=== PATIENT | female | born 1985 | race Two or more races ===

== ENCOUNTER 2023-08-18 08:39 | Day surgery (SDC) | payer MEDICAID ==
[~2023-08-18 08:39] MED LIST: ACET-1304 PO; AMLO1TAB22 PO; CHOL1CAP21 PO; HYDR50TA47 PO; METF-370 PO
[2023-08-18] MEDS ORDERED: MIDAZOLAM HCL 2MG/2ML 2ml VIAL (1mg/ml) ONE (09:49)
[2023-08-18] MEDS ORDERED: fentaNYL CITRATE 100 MCG/2 ML VL ONE (09:49)
[2023-08-18] MEDS ORDERED: LIDOCAINE 2%HCL (LOCAL ANESTH.) INJ 20ML MDV ONE (10:00)
[2023-08-18] MEDS ORDERED: IODIXANOL 320MG/ML 100ML BTL IV ONE (10:01)
[2023-08-18] MEDS ORDERED: cefTRIAXone 1GM/50ML D5W 50 ML IV ONE (10:09)
[2023-08-18] MEDS ORDERED: hydrALAZINE HCL 20 MG/ML VL ONE (10:32)
[2023-08-18 13:25] VITALS: BP 160/85; PULSE 88; RESP 16
[2023-08-18] MEDS: HYDROmorphone HCL 2 MG/ML VL/or syr IV ONE (13:25)
[2023-08-18 13:46] LABS: Basophils # (auto) 0 10 ^3/uL (0-0.2); Basophils % (auto) 0.6 % (0.0-2.0); Eosinophils # (auto) 0 10 ^3/uL (0-0.8); Hematocrit 36.3 % (36.0-46.0); Lymphocytes # (auto) 2.1 10 ^3/uL (0.4-5.4); Monocytes # (auto) 0.4 10 ^3/uL (0-1.3)
[2023-08-18 13:48] LABS: Eosinophils % (auto) 0.8 % (0.0-7.0); Hemoglobin 11.4 g/dL (12.2-16.2); Lymphocytes % (auto) 34.7 % (10.0-50.0); Mean Corpuscular Hemoglobin 24.8 pg (28.0-32.0); Mean Corpuscular Hgb Conc. 31.4 g/dL (32.0-36.0); Mean Corpuscular Volume 78.9 fL (80.0-100.0); Monocytes % (auto) 6.1 % (0.0-12.0); Neutrophils # (auto) 3.5 10 ^3/uL (1.6-8.6); Neutrophils % (auto) 57.8 % (37.0-80.0); Red Cell Distribution Width 16.8 % (11.8-14.3)
[2023-08-18] MEDS: ONDANSETRON HCL 4 MG/2 ML VIAL ONE (15:19)
== END 2023-08-18 15:30 | disposition home or self-care (01) ==
LOC: CATH 08:39
PROVIDERS: ATTEND Urology
DX: N13.2 Hydronephrosis with renal and ureteral calculous obstruction (principal); Z87.891 Personal history of nicotine dependence; Z79.899 Other long term (current) drug therapy; Z98.890 Other specified postprocedural states
CPT/HCPCS: 36415; 50432; 85025; C1758; C1769; C1894; J0360; J0696; J1170; J1644; J2250; J2405; J3010; Q9967; 76942; 99152; 99153

== ENCOUNTER 2023-08-22 06:27 | Inpatient (IN) | payer MEDICAID ==
[~2023-08-22] VITALS: Ht 177.8 cm; Wt 148.7 kg
[~2023-08-22 06:27] MED LIST changes: -ACET-1304 PO
[2023-08-22] MEDS: IOHEXOL 300 MG/ML 100ML BOTTLE IJ ONE ×2 (07:13→08:56)
[2023-08-22] MEDS: CIPROFLOXACIN 400MG/200ML 200 ML IV ONE (07:15)
[2023-08-22] MEDS ORDERED: fentaNYL CITRATE 5 ML ONE (07:32)
[2023-08-22] MEDS ORDERED: MIDAZOLAM HCL 2MG/2ML 2ml VIAL (1mg/ml) ONE (07:32)
[2023-08-22] MEDS ORDERED: PROPOFOL 10 MG/ML 20 ML IV ONE (08:42)
[2023-08-22] MEDS ORDERED: ROCURONIUM 10MG/ML 10ML VIAL IV ONE (08:42)
[2023-08-22] MEDS ORDERED: ONDANSETRON HCL 4 MG/2 ML VIAL ONE (08:43)
[2023-08-22] MEDS ORDERED: LIDOCAINE 2% (LOCAL ANESTH.) PF 5ml SDV ONE (08:43)
[2023-08-22] MEDS ORDERED: HYDROmorphone HCL 2 MG/ML VL/or syr IV PRN (09:00)
[2023-08-22 09:17] VITALS: O2SAT 96
[2023-08-22] MEDS ORDERED: NITROGLYCERIN 0.4 MG SL TAB SL PRN (09:30)
[2023-08-22] MEDS: HYDROmorphone HCL 2 MG/ML VL/or syr IV PRN ×2 (09:33→17:34)
[2023-08-22] MEDS ORDERED: NEOSTIGMINE 1 MG/ML INJ (10mg/10ML VIAL) ONE (09:55)
[2023-08-22] MEDS ORDERED: GLYCOPYRROLATE 0.2 MG/ML 1ML VIAL ONE (09:55)
[2023-08-22] MEDS: ONDANSETRON HCL 4 MG/2 ML VIAL IV ONE (09:56)
[2023-08-22] MEDS: MORPHINE SULFATE INJ 2 MG/ml SYRG IV PRN (10:50)
[2023-08-22] MEDS: SUCCINYLCHOLINE CHLORIDE 20 MG/ML 10ML VIAL IV ONE (11:27)
[2023-08-22 12:08] VITALS: BP 156/86; PULSE 100; RESP 20; TEMP 98.1; O2SAT 95
[2023-08-22 12:21] VITALS: BP 156/86; PULSE 100; RESP 20; TEMP 98.1
[2023-08-22 13:08] VITALS: BP 156/86; PULSE 103; RESP 20; TEMP 98.1; O2SAT 95
[2023-08-22] MEDS: MORPHINE SULFATE INJ 2 MG/ml SYRG IV ONE (13:20)
[2023-08-22] MEDS ORDERED: ONDANSETRON HCL 4 MG/2 ML VIAL IV PRN (13:30)
[2023-08-22] MEDS ORDERED: HYDROcodone-ACET 7.5/325MG TAB PO PRN (13:30)
[2023-08-22] MEDS ORDERED: ACETAMINOPHEN 325 MG TAB PO PRN (13:30)
[2023-08-22] MEDS ORDERED: DEXTROSE (50%) 50ML SYRG IV PRN (13:30)
[2023-08-22] MEDS ORDERED: HYDROmorphone HCL 2 MG/ML VL/or syr IV ONE (13:30)
[2023-08-22] MEDS: HYDROmorphone HCL 2 MG/ML VL/or syr IV ONE (13:53)
[2023-08-22 14:59] LABS: Basophils # (auto) 0 10 ^3/uL (0-0.2); Eosinophils # (auto) 0 10 ^3/uL (0-0.8); Lymphocytes # (auto) 1.4 10 ^3/uL (0.4-5.4); Monocytes # (auto) 0.5 10 ^3/uL (0-1.3); Neutrophils # (auto) 6.1 10 ^3/uL (1.6-8.6)
[2023-08-22 15:01] LABS: Basophils % (auto) 0.4 % (0.0-2.0); Eosinophils % (auto) 0.3 % (0.0-7.0); Hematocrit 36.7 % (36.0-46.0); Hemoglobin 11.4 g/dL (12.2-16.2); Mean Corpuscular Hemoglobin 25.6 pg (28.0-32.0); Mean Corpuscular Hgb Conc. 31.1 g/dL (32.0-36.0); Mean Corpuscular Volume 82.6 fL (80.0-100.0); Monocytes % (auto) 6.5 % (0.0-12.0); Neutrophils % (auto) 75.8 % (37.0-80.0); Red Blood Cells 4.45 10^6/uL (4.0-5.20); Red Cell Distribution Width 17.4 % (11.8-14.3)
[2023-08-22 15:15] LABS: INR 0.96 (0.9-1.15); Partial Thromboplastin Time 26.7 SEC (24.5-34.5); Prothrombin Time 10.2 sec (9.3-11.8)
[2023-08-22 15:23] LABS: Alanine Aminotransferase 20 U/L (7-40); Albumin 4.2 g/dL (3.2-4.8); Alkaline Phosphatase 80 U/L (46-116); Anion Gap 3 (5-15); Aspartate Aminotransferase 14 U/L (13-40); BUN/Creatinine Ratio 8.7 (10.0-20.0); Bilirubin, Total 0.3 mg/dL (0.2-1.0); Blood Urea Nitrogen 6 mg/dL (9-23); Calcium 8.8 mg/dL (8.5-10.1); Carbon Dioxide 27 mmol/L (20-30); Chloride 107 mmol/L (98-107); Glucose 148 mg/dL (74-106); Potassium 4.2 mmol/L (3.5-5.1); Sodium 137 mmol/L (136-145)
[2023-08-22] MEDS: SODIUM CHLORIDE 0.9% 1,000 ML IV SCH (16:00)
[2023-08-22 16:21] LABS: Urine Bacteria None Seen /hpf (None Seen)
[2023-08-22 16:59] LABS: Urine Blood 3+ /uL (Negative); Urine Budding Yeast OCCASIONAL /hpf (None Seen); Urine Clarity Turbid (Clear); Urine Color Colorless (Yellow); Urine Mucus FEW (None Seen); Urine Protein, UAD 1+ (Negative); Urine Specific Gravity 1.015 (1.001-1.035); Urine Urobilinogen Normal (Negative); Urine WBC 300 /hpf (0 - 5); Urine pH 6.5 (5.0-9.0)
[2023-08-22 17:00] VITALS: BP 163/79; PULSE 73; RESP 20; TEMP 98.5; O2SAT 98
[2023-08-22] MEDS: ACCU-CHEK COMFORT CURVE STRIP VI SCH (17:34)
[2023-08-22] MEDS: InsuLIN REG 1unit/0.01ml Soln (100units/ml) SC SCH (17:35)
[2023-08-22] MEDS: HYDROcodone-ACET 5/325MG TAB PO PRN (20:35)
[2023-08-22 21:00] VITALS: BP 203/80; PULSE 106; RESP 17; TEMP 98.1; O2SAT 95
[2023-08-22] MEDS: levoFLOXacin 500MG 100 ML IV SCH (21:40)
[2023-08-22] MEDS: hydrALAZINE HCL 20 MG/ML VL IV PRN (21:40)
[2023-08-23] VITALS (7 sets, daily range): BP systolic 114–165; BP diastolic 67–76; PULSE 83–113; RESP 16–20; TEMP 97.3–98.9; O2SAT 90–100
[2023-08-23 05:38] LABS: Basophils # (auto) 0 10 ^3/uL (0-0.2); Basophils % (auto) 0.3 % (0.0-2.0); Eosinophils # (auto) 0 10 ^3/uL (0-0.8); Eosinophils % (auto) 0.4 % (0.0-7.0); Hematocrit 33.5 % (36.0-46.0); Lymphocytes # (auto) 0.9 10 ^3/uL (0.4-5.4); Lymphocytes % (auto) 8.6 % (10.0-50.0); Mean Corpuscular Hgb Conc. 31.5 g/dL (32.0-36.0); Monocytes # (auto) 0.6 10 ^3/uL (0-1.3); Red Blood Cells 4.09 10^6/uL (4.0-5.20)
[2023-08-23 05:40] LABS: Hemoglobin 10.6 g/dL (12.2-16.2); Mean Corpuscular Hemoglobin 25.9 pg (28.0-32.0); Mean Corpuscular Volume 82.1 fL (80.0-100.0); Neutrophils # (auto) 8.5 10 ^3/uL (1.6-8.6); Neutrophils % (auto) 84.7 % (37.0-80.0); Red Cell Distribution Width 17.3 % (11.8-14.3); White Blood Cell 10.1 10^3/uL (4.4-10.8)
[2023-08-23 05:47] LABS: Anion Gap 6 (5-15); Carbon Dioxide 24 mmol/L (20-30); Chloride 104 mmol/L (98-107); Potassium 4.1 mmol/L (3.5-5.1); Sodium 134 mmol/L (136-145)
[2023-08-23 05:48] LABS: Calcium 8.6 mg/dL (8.7-10.4)
[2023-08-23 05:53] LABS: BUN/Creatinine Ratio 9.7 (10.0-20.0); Blood Urea Nitrogen 6 mg/dL (9-23); Glucose 159 mg/dL (74-106)
[2023-08-23] MEDS: amLODIPine BESYLATE 5 MG TAB PO SCH (09:39)
[2023-08-23] MEDS: KETOROLAC TROMETH 30 MG/ML 1ML VIAL IV SCH (11:50)
[2023-08-23] MEDS: HYDROmorphone HCL 2 MG/ML VL/or syr IV PRN (13:55)
[2023-08-24 01:00] VITALS: BP 156/86; PULSE 97; RESP 20; TEMP 99.8; O2SAT 93
[2023-08-24 05:00] VITALS: BP 153/91; PULSE 96; RESP 18; TEMP 98.8; O2SAT 97
[2023-08-24 07:36] LABS: Anion Gap 7 (5-15); Basophils # (auto) 0 10 ^3/uL (0-0.2); Carbon Dioxide 26 mmol/L (20-30); Chloride 105 mmol/L (98-107); Eosinophils # (auto) 0.1 10 ^3/uL (0-0.8); Eosinophils % (auto) 0.8 % (0.0-7.0); Hematocrit 31.6 % (36.0-46.0); Hemoglobin 9.9 g/dL (12.2-16.2); Lymphocytes # (auto) 1.3 10 ^3/uL (0.4-5.4); Mean Corpuscular Hgb Conc. 31.5 g/dL (32.0-36.0); Potassium 3.2 mmol/L (3.5-5.1); Red Blood Cells 3.88 10^6/uL (4.0-5.20); Sodium 138 mmol/L (136-145)
[2023-08-24 07:37] LABS: Calcium 8.6 mg/dL (8.7-10.4)
[2023-08-24 07:40] LABS: Basophils % (auto) 0.5 % (0.0-2.0); Lymphocytes % (auto) 17.1 % (10.0-50.0); Mean Corpuscular Hemoglobin 25.7 pg (28.0-32.0); Mean Corpuscular Volume 81.6 fL (80.0-100.0); Monocytes # (auto) 0.6 10 ^3/uL (0-1.3); Monocytes % (auto) 7.8 % (0.0-12.0); Neutrophils # (auto) 5.4 10 ^3/uL (1.6-8.6); Neutrophils % (auto) 73.8 % (37.0-80.0); White Blood Cell 7.3 10^3/uL (4.4-10.8)
[2023-08-24 07:42] LABS: Blood Urea Nitrogen 6 mg/dL (9-23); Glucose 140 mg/dL (74-106)
[2023-08-24 09:00] VITALS: BP 155/82; PULSE 95; RESP 14; TEMP 97.5; O2SAT 95
[2023-08-24] MEDS: POTASSIUM CHL 20 Meq TABLET PO ONE (11:32)
[2023-08-24 13:00] VITALS: BP 157/82; PULSE 88; RESP 14; TEMP 97.4; O2SAT 96
[2023-08-24 17:00] VITALS: BP 137/84; PULSE 102; RESP 16; TEMP 97.5; O2SAT 100
[2023-08-24 21:00] VITALS: BP 136/71; PULSE 88; RESP 18; TEMP 98.7; O2SAT 95
[2023-08-25 01:00] VITALS: BP 154/87; PULSE 94; RESP 19; TEMP 98.4; O2SAT 98
[2023-08-25 05:00] VITALS: BP 144/77; PULSE 74; RESP 18; TEMP 97.7; O2SAT 98
[2023-08-25 06:43] LABS: Basophils # (auto) 0 10 ^3/uL (0-0.2); Eosinophils # (auto) 0.1 10 ^3/uL (0-0.8); Eosinophils % (auto) 2.2 % (0.0-7.0); Hemoglobin 10.2 g/dL (12.2-16.2); Mean Corpuscular Hemoglobin 25.1 pg (28.0-32.0); Mean Corpuscular Hgb Conc. 31.7 g/dL (32.0-36.0)
[2023-08-25 06:46] LABS: Basophils % (auto) 0.7 % (0.0-2.0); Chloride 107 mmol/L (98-107); Hematocrit 32.1 % (36.0-46.0); Lymphocytes # (auto) 1.9 10 ^3/uL (0.4-5.4); Lymphocytes % (auto) 29.4 % (10.0-50.0); Mean Corpuscular Volume 79.1 fL (80.0-100.0); Monocytes # (auto) 0.5 10 ^3/uL (0-1.3); Monocytes % (auto) 7.3 % (0.0-12.0); Neutrophils # (auto) 3.9 10 ^3/uL (1.6-8.6); Neutrophils % (auto) 60.4 % (37.0-80.0); Nucleated Red Blood Cells % 0.1 %; Potassium 3.6 mmol/L (3.5-5.1); Red Blood Cells 4.06 10^6/uL (4.0-5.20); Red Cell Distribution Width 16.9 % (11.8-14.3); Sodium 139 mmol/L (136-145); White Blood Cell 6.5 10^3/uL (4.4-10.8)
[2023-08-25 06:47] LABS: Anion Gap 7 (5-15); Carbon Dioxide 25 mmol/L (20-30)
[2023-08-25 06:52] LABS: BUN/Creatinine Ratio 9.8 (10.0-20.0); Blood Urea Nitrogen 6 mg/dL (9-23); Glucose 150 mg/dL (74-106)
[2023-08-25 09:00] VITALS: BP 145/80; PULSE 75; RESP 19; TEMP 97.9; O2SAT 97
[2023-08-25] MEDS ORDERED: LEVO500T91 PO (11:55)
[2023-08-25 12:40] VITALS: BP 154/89; PULSE 74; RESP 20; TEMP 98.5; O2SAT 98
[2023-08-25 14:54] VITALS: BP 154/89; PULSE 74; RESP 20; TEMP 98.5; O2SAT 98
== END 2023-08-25 16:00 | disposition home or self-care (01) | DRG 465 ==
LOC: SUR 06:27 → OVERFLOW 09:24 → WEST WING 11:35
PROVIDERS: ADMIT Urology; ATTEND Internal Medicine
PROC: BT111ZZ Fluoroscopy of Right Kidney using Low Osmolar Contrast (ICD-10-PCS; 2023-08-22)
PROC: 0TJ54ZZ Inspection of Kidney, Percutaneous Endoscopic Approach (ICD-10-PCS; 2023-08-22)
PROC: 0T9030Z Drainage of Right Kidney with Drainage Device, Percutaneous Approach (ICD-10-PCS; principal; 2023-08-22 07:31)
DX: N20.0 Calculus of kidney (principal); E11.9 Type 2 diabetes mellitus without complications; Z68.42 Body mass index [BMI] 45.0-49.9, adult; E66.01 Morbid (severe) obesity due to excess calories; I10 Essential (primary) hypertension; N39.0 Urinary tract infection, site not specified; Z87.442 Personal history of urinary calculi; Z93.6 Other artificial openings of urinary tract status
CPT/HCPCS: 36415; 74018; 74425; 76000; 76775; 80048; 80053; 81001; 81025; 82962; 83036; 85025; 85610; 85730; 87081; G0378; J0330; J1815; J1885; J1956; J2001; J2250; J2405; J2704

== ENCOUNTER 2024-02-14 18:55 | Inpatient (IN) | payer MEDICAID ==
[~2024-02-14] VITALS: Ht 172.7 cm; Wt 143.2 kg
[~2024-02-14 18:55] MED LIST changes: +LEVO500T91 PO
--- NOTE | 2024-02-14 20:08 | ED.PDOC ---
General HPI Comments HPI: Poor Historian. 38-year-old female status post lithotripsy and stent placement earlier today by Dr. Troy the urologist. Patient was prescribed hydrocodone. Patient is here for right flank pain with nausea and not responding to hydrocodone. She contacted her urologist who advised her to come to the ER. Vitals: respiratory rate of 16, SpO2 of 94%RA, pulse rate of 77, and a blood pressure of 138/90 PMHx: nephrolithiasis, HTN, DM, depression PSHx: right laser lithotripsy, tonsillectomy, REVIEW OF SYSTEMS: CONSTITUTIONAL: Denies acute: fever, diaphoresis, chills, generalized weakness. HEAD: Denies acute: headache, photophobia Eyes: Denies acute: Double vision, vision loss, eye pain, eye discharge. EARS: Denies acute: tinnitus, hearing loss, ear discharge, ear pain, THROAT: Denies acute: sore throat, swelling, difficulty swallowing , pain with swallowing, change in voice. NECK: Denies acute: neck pain, neck swelling, stiff neck. HEART: Denies acute : chest pain, palpitations, LUNGS: Denies acute: SOB, wheezing, cough, hemoptysis ABDOMEN: Denies acute: Vomiting, diarrhea, melena , hematemesis, hematochezia SKIN: Denies acute: rash, redness, lesions, itchiness. EXTREMITIES: Denies acute: calf pain, numbness, tingling, weakness, denies pain in extremity. Denies acute: Low back pain. Neuro: Denies acute: focal neurological deficit, motor or sensory focal neurological deficit, tremors, seizure like activity, confusion, dizziness, change in mental status, loss of bowel or bladder function, cauda equina like symptoms. : Denies acute: dysuria, hematuria, increase in urinary frequency. PSYCH: Denies acute: hallucination, suicidal ideation, homicidal ideation. FEMALE: Denies acute: abnormal vaginal bleeding, foul odor, unusual discharge. PHYSICAL EXAM: General: no acute distress, awake and alert. Head: normocephalic, atraumatic. Neck: supple, trachea is midline, no swelling. Throat: Normal phonation. Eyes:, no erythema, no purulent discharge, no proptosis, no icterus. Heart: regular rate, regular rhythm, no significant murmur appreciated. Lungs: no apparent respiratory distress, Able to speak in full sentences. No wheezing, no rhonchi, no crackles. No stridors Clear to auscultation bilaterally. Abdomen: non tender to palpation, non distended, soft, no guarding, no rebound, + bowel sounds. Morbidly obese Neuro: Awake, Alert, oriented to name, self, situation, follows commands GCS=15. Speech is normal. Skin: no petechia, no purpura, no cyanosis, non-pale, not jaundice. Lower extremities: --no - Pitting edema no deformity, no focal swelling, no calf TTP. Makes eye contact. moves all four extremities. Face: no apparent facial droop. Right CVA tenderness to percussion Ambulating in the ED independently. Chief Complaint: Flank Pain Time Seen by MD: 20:00 Reviewed notes: Nurses Notes, Medications, Allergies Allergies: Coded Allergies: No Known Drug Allergy (Verified Allergy, Unknown, 02/14/24) Uncoded Allergies: NONE (Allergy, Unknown, 08/17/23) Home Meds Active Scripts Levofloxacin Hemihydrate (LEVAQUIN 500 MG) 500 Mg Tab, 500 MG PO DAILY for 7 Days, #7 TAB Prov:GARO RESTREPO MD 08/25/23 Reported Medications Cholecalciferol (Vitamin D3) 50,000 Unit Cap, 027[address] UNIT PO QWEEKLY for TUESDAYS, CAP 08/17/23 Hydralazine Hcl (Hydralazine Hcl) 50 Mg Tab, 50 MG PO Q4HP PRN for SYS B/P >150, MG 08/17/23 Amlodipine Besylate (Amlodipine Besylate) 5 Mg Tab, 5 MG PO BID for HTN, MG 08/17/23 Metformin Hydrochloride (Metformin Hcl) 500 Mg Tab, 1000 MG PO DAILY for DIABETES for 30 Days, MG 08/17/23 Information Source: Patient Mode of Arrival: Ambulatory Was a procedure done? Was a procedure done?: No Differential Diagnosis Kidney stone (Female): AAA, Aortic dissection, , Appendicitis, Bowel obstruction, Cholelithiasis, DJD, Ectopic , Hepatitis, HNP, Musculoskeletal pain, Ovarian torsion, Pancreatitis, Pyelonephritis, Renal failure, Strain, Urinary obstruction, Urolithiasis Other Differential Diagnosis Flank Pain; DDX include Nephrolethiasis, obstructive uropathy, kidney cancer, renal infarct, intraabdominal neoplasm, lower lobe pneumonia, retroperitoneal hemorrhage, pancreatitis, aneurysm, dissection, musculoskeletal, rib contusion/trauma, hem atoma, PYLONEPHRITIS, muscle strain, spinal disease. IN A FEMALE X-Ray, Labs, Meds, VS Vital Signs Date Time Temp Pulse Resp B/P (MAP) Pulse Ox O2 Delivery O2 Flow Rate FiO2 02/14/24 19:19 98.2 77 16 138/90 (106) 94 Lab Test 02/14/24 21:04 02/14/24 20:15 Range/Units Urine Color Colorless Yellow Urine Clarity Turbid H Clear Urine pH 5.5 5.0-9.0 Urine Specific [place] 1.032 1.001-1.035 Urine Protein 1+ H Negative Urine Ketones 1+ H Negative Urine Blood 3+ H Negative /uL Urine Nitrite Negative Negative Urine Bilirubin Negative Negative Urine Urobilinogen Normal Negative mg/dL Urine Leukocyte Esterase Negative Negative /uL Urine RBC 496 0 - 4 /hpf Urine WBC 20 0 - 5 /hpf Urine Squamous Epithelial Cells Few <5 /hpf Urine Bacteria Few H None Seen /hpf Urine Mucus Few None Seen Urine Glucose 4+ H Normal mg/dL Urine Opiates Screen Pos NEGATIVE Urine Fentanyl Screen Pos NEGATIVE Urine Barbiturates Screen Neg NEGATIVE Urine Phencyclidine Screen Neg NEGATIVE Urine Amphetamines Screen Neg NEGATIVE Urine Benzodiazepines Screen Pos NEGATIVE Urine Cocaine Screen Neg NEGATIVE Urine Cannabinoids Screen Neg NEGATIVE White Blood Count 11.0 H 4.4-10.8 10^3/uL Red Blood Count 4.63 4.0-5.20 10^6/uL Hemoglobin 12.0 L 12.2-16.2 g/dL Hematocrit 37.7 36.0-46.0 % Mean Corpuscular Volume 81.5 80.0-100.0 fL Mean Corpuscular Hemoglobin 26.0 L 28.0-32.0 pg Mean Corpuscular Hemoglobin Concent 31.9 L 32.0-36.0 g/dL Red Cell Distribution Width 17.3 H 11.8-14.3 % Platelet Count 286 140-450 10^3/uL Mean Platelet Volume 7.9 6.9-10.8 fL Neutrophils (%) (Auto) 87.6 H 37.0-80.0 % Lymphocytes (%) (Auto) 9.1 L 10.0-50.0 % Monocytes (%) (Auto) 3.1 0.0-12.0 % Eosinophils (%) (Auto) 0.0 0.0-7.0 % Basophils (%) (Auto) 0.2 0.0-2.0 % Neutrophils # (Auto) 9.6 H 1.6-8.6 10 ^3/uL Lymphocytes # (Auto) 1.0 0.4-5.4 10 ^3/uL Monocytes # (Auto) 0.3 0-1.3 10 ^3/uL Eosinophils # (Auto) 0 0-0.8 10 ^3/uL Basophils # (Auto) 0 0-0.2 10 ^3/uL Nucleated Red Blood Cells 0.0 % Sodium Level 137 136-145 mmol/L Potassium Level 4.4 3.5-5.1 mmol/L Chloride Level 104 98-107 mmol/L Carbon Dioxide Level 22 20-31 mmol/L Anion Gap 11 5-15 Blood Urea Nitrogen 14 9-23 mg/dL Creatinine 1.09 H 0.550-1.02 mg/dL Glomerular Filtration Rate Calc 66 >90 mL/min BUN/Creatinine Ratio 12.8 10.0-20.0 Serum Glucose 241 H 74-106 mg/dL Calcium Level 9.3 8.7-10.4 mg/dL Total Bilirubin 0.4 0.2-1.0 mg/dL Aspartate Amino Transferase (AST) 16 13-40 U/L Alanine Aminotransferase (ALT) 30 7-40 U/L Alkaline Phosphatase 96 46-116 U/L Troponin I High Sensitivity < 3 L </=34 ng/L Total Protein 7.4 5.7-8.2 g/dL Albumin 4.5 3.2-4.8 g/dL Beta HCG, Quantitative 0.1 L 1.5-4.2 mIU/mL [facility] [id number] [place] [id number] Ph: [phone] DIAGNOSTIC IMAGING Diagnostic Imaging Report : [id number] Signed PATIENT: ABEL PLEITEZ ACCT: [id number] UNIT: [id number] : 1985 LOC: ER ROOM / BED: / AGE / SEX: 38 / F ADM STATUS: REG ER SERVICE 38 ORDERING PHYSICIAN: CALLIE VIERA DO PROCEDURE(s): ABPL - CT AB PEL WO CON-NO ORAL OR IV REASON: flank pain post lithotripsy ORDER NUMBER(s): [id number], ACCESSION NUMBER(s): [id number] Exam: CT CT AB PEL WO CON-NO ORAL OR IV History: flank pain post lithotripsy Comparison Study: None Technique: Multidetector spiral CT of the abdomen and pelvis was performed from lung bases to pubic symphysis. Imaging was performed without IV contrast. Axial, coronal and sagittal multiplanar reformats were obtained from the axial data set by the technologist. Radiation dose : Abdomen/Pelvis: CTDIvol 27 mGy, DLP 1514 mGy*cm. Findings: Evaluation of solid organs is limited due to lack of intravenous contrast use. Lung Bases: No acute or significant lung base finding. Normal heart size. No pleural or pericardial effusion. Liver: The liver is normal in size. No focal lesions. Gallbladder and biliary Tree: Unremarkable Spleen: Unremarkable Pancreas: The pancreas is grossly normal in appearance. Adrenal Glands: Unremarkable Kidneys: Right kidney appears swollen. There is hyperdense material in the renal calices, renal pelvis, and ureter which likely represents blood or contrast. There is moderate right hydronephrosis. Some air is seen in the collecting system consistent with recent intervention. There are a few right renal calculi, largest measuring up to 8 mm. No definite right ureteral calculus. Few left lower pole renal calculi noted. No left hydronephrosis. Bladder: Grossly unremarkable for degree of distention. Bowel: The stomach is grossly normal in appearance. Small bowel and colon are normal in caliber and distribution. The appendix is not visualized; however, no secondary findings of acute appendicitis identified. Ascites: Absent Lymphadenopathy: No mesenteric, retroperitoneal or periportal lymphadenopathy. Abdominal wall and Mesentery: Unremarkable. Vasculature: The visualized abdominal aorta is normal in size and caliber. Evaluation of abdominal and pelvic vessels is limited due to lack of intravenous contrast. Pelvic Organs: Unremarkable Musculoskeletal: No aggressive focal bony lesions, acute fractures or dislocation. IMPRESSION: 1. Evidence of recent right kidney intervention. Right kidney appears swollen. Moderate right hydronephrosis. Hyperdense fluid in the right renal collecting system and right ureter likely represents blood or contrast. Residual right renal calculi, largest in the lower pole measures up to 8 mm. Few left renal calculi. Radiation optimization: All CT scans at this facility use at least one of these dose optimization techniques: Automated exposure control mA and/or kV adjustment per patient size (includes targeted exams where dose is matched to clinical indication) or iterative reconstruction. HS:Y ATED BY: FERMIN FREITAS MD DICTATED DATE/TIME: 02/14/242031 SIGNED BY: FERMIN FREITAS MD SIGNED DATE/TIME: 02/14/242031 CC: Time of 1ST Reevaluation: 20:00 Reevaluation 1ST: Unchanged Time of 2ND Reevaluation: 22:54 Reevaluation 2ND: Improved Patient Education/Counseling: Diagnosis, Treatment Family Education/Counseling: No Family Present Comments We tried multiple times to reach the urology who sent the the patient to the ED for further evaluation Dr. Troy. We left multiple messages. I also is techs him on his personal phone. We have not heard back from him yet. Patient is in severe pain. Patient will be admitted for pain control. Patient presented with the above HPI.----flank pain--workup was initiated. p atient was found with the above mentioned diagnosis. Patient was given: Fentanyl and fluids and Rocephin Patient ED course and VS have been stabilized. Patient has been reassessed in the ED and remained in a stable condition. Pertinent incidental findings were discussed with the patient and/or family. Patient/family voices understanding and is agreeable with plan. Patient has been observed in the ED adequate length of time to insure improvement/stability. patient was admitted to the medicine team for further evaluation and treatment of their presentation. All the reports of any imaging studies that were ordered by myself were reviewed by myself. Departure 1 Departure Time of Disposition: 20:09 Impression: Primary Impression: Postoperative pain Additional Impressions: UTI (urinary tract infection) Hydronephrosis, right Disposition: ADMITTED INPATIENT Admit to: Tele Condition: Guarded Discharged With: Self Critical Care Note Critical Care Time?: No I personally scribed for CALLIE VIERA DO ([email or web address]) on 02/14/24 at 20:08. Electronically submitted by Ar Ly ([email or web address]). I personally scribed for CALLIE VIERA DO ([email or web address]) on 11/13/24 at 21:37. Electronically submitted by Ar Ly [email or web address]). CALLIE VIERA DO Feb 14, 2024 20:08
[2024-02-14 20:33] LABS: Basophils # (auto) 0 10 ^3/uL (0-0.2); Basophils % (auto) 0.2 % (0.0-2.0); Eosinophils # (auto) 0 10 ^3/uL (0-0.8); Hematocrit 37.7 % (36.0-46.0); Lymphocytes % (auto) 9.1 % (10.0-50.0); Mean Corpuscular Hgb Conc. 31.9 g/dL (32.0-36.0); Mean Corpuscular Volume 81.5 fL (80.0-100.0); Monocytes # (auto) 0.3 10 ^3/uL (0-1.3); Monocytes % (auto) 3.1 % (0.0-12.0); Neutrophils # (auto) 9.6 10 ^3/uL (1.6-8.6); Neutrophils % (auto) 87.6 % (37.0-80.0); Platelet Count (auto) 286 10^3/uL (140-450); Red Blood Cells 4.63 10^6/uL (4.0-5.20); Red Cell Distribution Width 17.3 % (11.8-14.3)
--- NOTE | 2024-02-14 20:35 | DVH ---
Exam: CT CT AB PEL WO CON-NO ORAL OR IV History: flank pain post lithotripsy Comparison Study: None Technique: Multidetector spiral CT of the abdomen and pelvis was performed from lung bases to pubic symphysis. Imaging was performed without IV contrast. Axial, coronal and sagittal multiplanar reform ats were obtained from the axial data set by the technologist. Radiation dose : Abdomen/Pelvis: CTDIvol 27 mGy, DLP 1514 mGy*cm. Findings: Evaluation of solid organs is limited due to lack of intravenous contrast use. Lung Bases: No acute or significant lung base finding. Normal heart size. No pleural or pericardial effusion. Liver: The liver is normal in size. No focal lesions. Gallbladder and biliary Tree: Unremarkable Spleen: Unremarkable Pancreas: The pancreas is grossly normal in appearance. Adrenal Glands: Unremarkable Kidneys: Right kidney appears swollen. There is hyperdense material in the renal calices, renal pelv is, and ureter which likely represents blood or contrast. There is moderate right hydronephrosis. Newton e air is seen in the collecting system consistent with recent intervention. There are a few right shannon al calculi, largest measuring up to 8 mm. No definite right ureteral calculus. Few left lower pole re nal calculi noted. No left hydronephrosis. Bladder: Grossly unremarkable for degree of distention. Bowel: The stomach is grossly normal in appearance. Small bowel and colon are normal in caliber and d istribution. The appendix is not visualized; however, no secondary findings of acute appendicitis id entified. Ascites: Absent Lymphadenopathy: No mesenteric, retroperitoneal or periportal lymphadenopathy. Abdominal wall and Mesentery: Unremarkable. Vasculature: The visualized abdominal aorta is normal in size and caliber. Evaluation of abdominal a nd pelvic vessels is limited due to lack of intravenous contrast. Pelvic Organs: Unremarkable Musculoskeletal: No aggressive focal bony lesions, acute fractures or dislocation. IMPRESSION: 1. Evidence of recent right kidney intervention. Right kidney appears swollen. Moderate right hydrone phrosis. Hyperdense fluid in the right renal collecting system and right ureter likely represents bl ood or contrast. Residual right renal calculi, largest in the lower pole measures up to 8 mm. Few lef t renal calculi. Radiation optimization: All CT scans at this facility use at least one of these dose optimization diaz hniques: Automated exposure control mA and/or kV adjustment per patient size (includes targeted exams where dose is matched to clinical indication) or iterative reconstruction. HS:Y
[2024-02-14 20:51] LABS: Alanine Aminotransferase 30 U/L (7-40); Albumin 4.5 g/dL (3.2-4.8); Alkaline Phosphatase 96 U/L (46-116); Anion Gap 11 (5-15); Aspartate Aminotransferase 16 U/L (13-40); BUN/Creatinine Ratio 12.8 (10.0-20.0); Bilirubin, Total 0.4 mg/dL (0.2-1.0); Blood Urea Nitrogen 14 mg/dL (9-23); Calcium 9.3 mg/dL (8.7-10.4); Carbon Dioxide 22 mmol/L (20-31); Chloride 104 mmol/L (98-107); Glucose 241 mg/dL (74-106); Potassium 4.4 mmol/L (3.5-5.1); Sodium 137 mmol/L (136-145); Total Protein 7.4 g/dL (5.7-8.2)
[2024-02-14 21:27] LABS: Amphetamine Screen, Urine Neg (NEGATIVE); Barbiturate Scree,Urine Neg (NEGATIVE); Benzodiazephine Screen, Urine Pos (NEGATIVE); Cannabinoid Screen, Urine Neg (NEGATIVE); Cocaine Screen, Urine Neg (NEGATIVE); Opiate Scree,Urine Pos (NEGATIVE); Phencyclidine Screen, Urine Neg (NEGATIVE)
[2024-02-14 21:33] LABS: Urine Bacteria FEW /hpf (None Seen); Urine Blood 3+ /uL (Negative); Urine Clarity Turbid (Clear); Urine Color Colorless (Yellow); Urine Mucus FEW (None Seen); Urine Protein, UAD 1+ (Negative); Urine Specific Gravity 1.032 (1.001-1.035); Urine Urobilinogen Normal (Negative); Urine WBC 20 /hpf (0 - 5); Urine pH 5.5 (5.0-9.0)
[2024-02-15 01:17] VITALS: PULSE 82; RESP 17; O2SAT 98
[2024-02-15] MEDS: SODIUM CHLORIDE 0.9% 1,000 ML IV ONE (01:48)
[2024-02-15] MEDS: ONDANSETRON HCL 4 MG/2 ML VIAL IV ONE (02:05)
[2024-02-15] MEDS: cefTRIAXone 1GM/50ML D5W 50 ML IV ONE (02:05)
[2024-02-15] MEDS: fentaNYL CITRATE 100 MCG/2 ML VL IV ONE (02:13)
[2024-02-15] MEDS ORDERED: ONDANSETRON HCL 4 MG/2 ML VIAL IV PRN ×2 (04:00→15:15)
[2024-02-15] MEDS ORDERED: ACETAMINOPHEN 325 MG TAB PO PRN (04:00)
[2024-02-15] MEDS ORDERED: DEXTROSE (50%) 50ML SYRG IV PRN (04:00)
[2024-02-15] MEDS: ACCU-CHEK COMFORT CURVE STRIP VI SCH (06:08)
[2024-02-15] MEDS: InsuLIN REG 1unit/0.01ml Soln (100units/ml) SC SCH (06:11)
[2024-02-15] MEDS: HYDROcodone-ACET 5/325MG TAB PO PRN (06:31)
--- NOTE | 2024-02-15 06:55 | DVHHP2 ---
History of Present Illness Reason for Visit: Flank pain History of Present Illness 38-year-old female presents for evaluation of right-sided flank pain. Patient reports undergoing lithotripsy with stent placement yesterday by Dr. Troy. She reports worsening right flank pain postprocedure and noted some blood in her urine. Denies fever or chills. No other acute complaints reported. Past Medical History Diabetes mellitus, hypertension, nephrolithiasis and depression. Past Surgical History Tonsillectomy and lithotripsy with stent placement Family History Noncontributory Smoke: No ALCOHOL: none Drugs: None Lives: with Family Review of Systems Review of Systems Review of systems are currently negative otherwise addressed in HPI. Allergies: Coded Allergies: No Known Drug Allergy (Verified Allergy, Unknown, 02/14/24) Uncoded Allergies: NONE (Allergy, Unknown, 08/17/23) Medications Current Medications Medications Dose Ordered Sig/Lilliam Route Start Time Stop Time Status Last Admin Dose Admin Losartan Potassium 100 mg DAILY PO 02/15/24 10:00 Ceftriaxone Sodium 50 ml @ 100 mls/hr DAILY@0200 IV 02/16/24 02:00 Diagnostic Test (Pha) 1 strip Q6HR 02/15/24 06:00 02/15/24 06:08 1 STRIP Insulin Human Regular Q6HR SC 02/15/24 06:00 02/15/24 06:11 2 UNITS Dextrose 50 ml UD PRN IV 02/15/24 04:00 Acetaminophen/ Hydrocodone Bitart 1 tab Q4HP PRN PO 02/15/24 04:00 02/15/24 06:31 1 TAB Ondansetron HCl 4 mg Q4HP PRN IV 02/15/24 04:00 Acetaminophen 650 mg Q6HP PRN PO 02/15/24 04:00 Morphine Sulfate 2 mg Q4HPRN PRN IV 02/15/24 04:00 Exam Vital Signs Vital Signs Date Time Temp Pulse Resp B/P (MAP) Pulse Ox O2 Delivery O2 Flow Rate FiO2 02/15/24 06:32 98.2 78 18 143/75 (97) 97 98.2 02/15/24 01:17 Room Air* 0 21 Exam Gen: 38-year-old female in mild distress, morbidly obese Skin: Warm, dry, normal color and texture, no rash. HEENT: Normocephalic atraumatic, mucous membranes moist and pink. Neck: Cervical and supraclavicular nodes normal without enlargement, trachea is midline, thyroid gland is normal without masses. Pulmonary: Clear to auscultation and percussion bilaterally. Cardiac: Regular rate and rhythm. No murmur Abdomen: Soft, right flank tenderness, nondistended, bowel sounds present all 4 quadrants, no guarding, no rigidity, no organomegaly. Extremities: No cyanosis, clubbing, no edema Neuro: Cranial nerves II through XII grossly intact, normal affect and speech, no focal motor deficits. Labs/Xrays ORDERING PHYSICIAN: CALLIE VIERA DO PROCEDURE(s): ABPL - CT AB PEL WO CON-NO ORAL OR IV REASON: flank pain post lithotripsy ORDER NUMBER(s): [id number], ACCESSION NUMBER(s): [id number] Exam: CT CT AB PEL WO CON-NO ORAL OR IV History: flank pain post lithotripsy Comparison Study: None Technique: Multidetector spiral CT of the abdomen and pelvis was performed fro m lung bases to pubic symphysis. Imaging was performed without IV contrast. Axial, coronal and sagittal multiplanar reformats were obtained from the axial data set by the technologist. Radiation dose : Abdomen/Pelvis: CTDIvol 27 mGy, DLP 1514 mGy*cm. Findings: Evaluation of solid organs is limited due to lack of intravenous contrast use. Lung Bases: No acute or significant lung base finding. Normal heart size. No pleural or pericardial effusion. Liver: The liver is normal in size. No focal lesions. Gallbladder and biliary Tree: Unremarkable Spleen: Unremarkable Pancreas: The pancreas is grossly normal in appearance. Adrenal Glands: Unremarkable Kidneys: Right kidney appears swollen. There is hyperdense material in the renal calices, renal pelvis, and ureter which likely represents blood or contrast. There is moderate right hydronephrosis. Some air is seen in the collecting system consistent with recent intervention. There are a few right renal calculi, largest measuring up to 8 mm. No definite right ureteral calculus. Few left lower pole renal calculi noted. No left hydronephrosis. Bladder: Grossly unremarkable for degree of distention. Bowel: The stomach is grossly normal in appearance. Small bowel and colon are normal in caliber and distribution. The appendix is not visualized; however, no secondary findings of acute appendicitis identified. Ascites: Absent Lymphadenopathy: No mesenteric, retroperitoneal or periportal lymphadenopathy. Abdominal wall and Mesentery: Unremarkable. Vasculature: The visualized abdominal aorta is normal in size and caliber. Evaluation of abdominal and pelvic vessels is limited due to lack of intravenous contrast. Pelvic Organs: Unremarkable Musculoskeletal: No aggressive focal bony lesions, acute fractures or dislocation. IMPRESSION: 1. Evidence of recent right kidney intervention. Right kidney appears swollen. Moderate right hydronephrosis. Hyperdense fluid in the right renal collecting system and right ureter likely represents blood or contrast. Residual right renal calculi, largest in the lower pole measures up to 8 mm. Few left renal calculi. Radiation optimization: All CT scans at this facility use at least one of these dose optimization techniques: Automated exposure control mA and/or kV adjustment per patient size (includes targeted exams where dose is matched to clinical indication) or iterative reconstruction. HS:Y Labs Test 02/14/24 21:04 02/14/24 20:15 Range/Units Urine Color Colorless Yellow Urine Clarity Turbid H Clear Urine pH 5.5 5.0-9.0 Urine Specific [place] 1.032 1.001-1.035 Urine Protein 1+ H Negative Urine Ketones 1+ H Negative Urine Blood 3+ H Negative /uL Urine Nitrite Negative Negative Urine Bilirubin Negative Negative Urine Urobilinogen Normal Negative mg/dL Urine Leukocyte Esterase Negative Negative /uL Urine RBC 496 0 - 4 /hpf Urine WBC 20 0 - 5 /hpf Urine Squamous Epithelial Cells Few <5 /hpf Urine Bacteria Few H None Seen /hpf Urine Mucus Few None Seen Urine Glucose 4+ H Normal mg/dL Urine Opiates Screen Pos NEGATIVE Urine Fentanyl Screen Pos NEGATIVE Urine Barbiturates Screen Neg NEGATIVE Urine Phencyclidine Screen Neg NEGATIVE Urine Amphetamines Screen Neg NEGATIVE Urine Benzodiazepines Screen Pos NEGATIVE Urine Cocaine Screen Neg NEGATIVE Urine Cannabinoids Screen Neg NEGATIVE White Blood Count 11.0 H 4.4-10.8 10^3/uL Red Blood Count 4.63 4.0-5.20 10^6/uL Hemoglobin 12.0 L 12.2-16.2 g/dL Hematocrit 37.7 36.0-46.0 % Mean Corpuscular Volume 81.5 80.0-100.0 fL Mean Corpuscular Hemoglobin 26.0 L 28.0-32.0 pg Mean Corpuscular Hemoglobin Concent 31.9 L 32.0-36.0 g/dL Red Cell Distribution Width 17.3 H 11.8-14.3 % Platelet Count 286 140-450 10^3/uL Mean Platelet Volume 7.9 6.9-10.8 fL Neutrophils (%) (Auto) 87.6 H 37.0-80.0 % Lymphocytes (%) (Auto) 9.1 L 10.0-50.0 % Monocytes (%) (Auto) 3.1 0.0-12.0 % Eosinophils (%) (Auto) 0.0 0.0-7.0 % Basophils (%) (Auto) 0.2 0.0-2.0 % Neutrophils # (Auto) 9.6 H 1.6-8.6 10 ^3/uL Lymphocytes # (Auto) 1.0 0.4-5.4 10 ^3/uL Monocytes # (Auto) 0.3 0-1.3 10 ^3/uL Eosinophils # (Auto) 0 0-0.8 10 ^3/uL Basophils # (Auto) 0 0-0.2 10 ^3/uL Nucleated Red Blood Cells 0.0 % Sodium Level 137 136-145 mmol/L Potassium Level 4.4 3.5-5.1 mmol/L Chloride Level 104 98-107 mmol/L Carbon Dioxide Level 22 20-31 mmol/L Anion Gap 11 5-15 Blood Urea Nitrogen 14 9-23 mg/dL Creatinine 1.09 H 0.550-1.02 mg/dL Glomerular Filtration Rate Calc 66 >90 mL/min BUN/Creatinine Ratio 12.8 10.0-20.0 Serum Glucose 241 H 74-106 mg/dL Calcium Level 9.3 8.7-10.4 mg/dL Total Bilirubin 0.4 0.2-1.0 mg/dL Aspartate Amino Transferase (AST) 16 13-40 U/L Alanine Aminotransferase (ALT) 30 7-40 U/L Alkaline Phosphatase 96 46-116 U/L Troponin I High Sensitivity < 3 L </=34 ng/L Total Protein 7.4 5.7-8.2 g/dL Albumin 4.5 3.2-4.8 g/dL Beta HCG, Quantitative 0.1 L 1.5-4.2 mIU/mL Assessment/Plan Assessment/Plan Assessment Complicated UTI Postoperative pain Right hydronephrosis Diabetes mellitus Leukocytosis Morbid obesity Plan Admit the patient to [facility] surge to the hospitalist Urology consultation Rocephin Pain management Continue treatment per orders. Plan discussed with: Patient My Orders Orders - GARO MOODY Procedure Category Date Status Time Losartan Tablet PHA 02/15/24 In Process (Cozaar Tablet) 10:00 Consistent DIET 02/15/24 Transmitted Carb(Ccho)Diabetes Breakfast Basic Metabolic Panel LAB 02/16/24 Verified 04:00 Glucose Blood PHA 02/15/24 In Process (Accu-Chek Comfort 06:00 Insulin R (Human) PHA 02/15/24 In Process (Insulin R) 06:00 Dextrose 50% Syringe PHA 02/15/24 In Process 04:00 Admit ADMIT 02/15/24 Transmitted 03:50 Hydrocodone-Acet PHA 02/15/24 In Process 5/325mg Tab (Hagan 04:00 Ondansetron Hcl PHA 02/15/24 In Process (Zofran) 04:00 Complete Blood Count LAB 02/16/24 Verified 04:00 Cardiac DIET 02/15/24 Transmitted Diet-2gna,Lofat,Lochol Breakfast Condition: Stable JOSSELIN 02/15/24 In Process 03:50 Acetaminophen Tablet PHA 02/15/24 In Process (Tylenol Tablet) 04:00 Bedrest With Bathroom JOSSELIN 02/15/24 In Process Privileg 03:50 Morphine Sulfate PHA 02/15/24 In Process Injection 04:00 * Urology Consult CONS 02/15/24 Transmitted 03:55 Ceftriaxone 1gm/50ml PHA 02/16/24 In Process D5w (Rocephin) 02:00 Hemoglobin & LAB 02/15/24 Transmitted Hematocrit 06:51 Type And Screen BBK 02/15/24 Transmitted 06:51 Date of Service: Feb 15, 2024 Billing Provider: GARO MOODY Common Visit Codes: [id number] INP/OBS CARE (MOD) GARO MOODY Feb 15, 2024 06:55
[2024-02-15 07:35] LABS: Hematocrit 36.1 % (36.0-46.0); Hemoglobin 11.3 g/dL (12.2-16.2)
--- NOTE | 2024-02-15 07:44 | DVHINCON2 ---
Date of service: Feb 15, 2024 Referring Physician ER Reason for Consultation Nausea and vomiting and right flank pain History of Present Illness Patient underwent multiple urological procedures for her right lower pole calculus. She had undergone an attempted PCNL without success, 2 ureteroscopic laser lithotripsies, 2 extracorporeal shockwave lithotripsies and another attempt at ureteroscopic laser lithotripsy yesterday at [facility]. Stone could not be identified. Patient was discharged home but returned to the emergency room in severe right flank pain and nausea vomiting. Moderate hydronephrosis was noted on the CT scan. Patient is admitted for pain control and I am planning to take her back to the OR for stent placement and possible CVAC laser lithotripsy Past Medical History Multiple kidney stones Past Surgical History Multiple kidney stone procedures Family History: Diabetes mellitus G8 MOTHER G8 FATHER Hypertension G8 MOTHER G8 FATHER Allergies: Coded Allergies: No Known Drug Allergy (Verified Allergy, Unknown, 02/14/24) Uncoded Allergies: NONE (Allergy, Unknown, 08/17/23) Home Meds Active Scripts Levofloxacin Hemihydrate (LEVAQUIN 500 MG) 500 Mg Tab, 500 MG PO DAILY for 7 Days, #7 TAB Prov:GARO RESTREPO MD 08/25/23 Reported Medications Cholecalciferol (Vitamin D3) 50,000 Unit Cap, 34346 UNIT PO QWEEKLY for TUESDAYS, CAP 08/17/23 Hydralazine Hcl (Hydralazine Hcl) 50 Mg Tab, 50 MG PO Q4HP PRN for SYS B/P >150, MG 08/17/23 Amlodipine Besylate (Amlodipine Besylate) 5 Mg Tab, 5 MG PO BID for HTN, MG 08/17/23 Metformin Hydrochloride (Metformin Hcl) 500 Mg Tab, 1000 MG PO DAILY for DIABETES for 30 Days, MG 08/17/23 Current Medications Current Medications Medications (Trade) Dose Ordered Sig/Lilliam Route PRN Reason Start Time Stop Time Status Last Admin Losartan Potassium (Cozaar Tablet) 100 mg DAILY PO 02/15/24 10:00 Ceftriaxone Sodium 50 ml @ 100 mls/hr DAILY@0200 IV 02/16/24 02:00 Diagnostic Test (Pha) (Accu-Chek Comfort Curve T) 1 strip Q6HR 02/15/24 06:00 02/15/24 06:08 Insulin Human Regular (InsuLIN R) Q6HR SC 02/15/24 06:00 02/15/24 06:11 Dextrose 50 ml UD PRN IV Blood Sugar LESS THAN 60 02/15/24 04:00 Acetaminophen/ Hydrocodone Bitart ([place] 5/325MG Tab) 1 tab Q4HP PRN PO MODERATE PAIN (4-6 PAIN SCALE) 02/15/24 04:00 02/15/24 06:31 Ondansetron HCl (Zofran) 4 mg Q4HP PRN IV NAUSEA / VOMITING 02/15/24 04:00 Acetaminophen (Tylenol Tablet) 650 mg Q6HP PRN PO PAIN SCALE 1-3 OR TEMP>100.4 02/15/24 04:00 Morphine Sulfate 2 mg Q4HPRN PRN IV SEVERE PAIN (7-10 PAIN SCALE) 02/15/24 04:00 Review of Systems Right flank pain, nausea and vomiting Vital Signs Vital Signs Date Time Temp Pulse Resp B/P (MAP) Pulse Ox O2 Delivery O2 Flow Rate FiO2 02/15/24 06:32 98.2 78 18 143/75 (97) 97 98.2 02/15/24 01:17 Room Air* 0 21 Physical Exam Exam: Right flank pain Labs/Diagnostic Data Labs Test 02/15/24 07:00 02/14/24 21:04 02/14/24 20:15 Range/Units Hemoglobin 11.3 L 12.2-16.2 g/dL Hematocrit 36.1 36.0-46.0 % Urine Color Colorless Yellow Urine Clarity Turbid H Clear Urine pH 5.5 5.0-9.0 Urine Specific [place] 1.032 1.001-1.035 Urine Protein 1+ H Negative Urine Ketones 1+ H Negative Urine Blood 3+ H Negative /uL Urine Nitrite Negative Negative Urine Bilirubin Negative Negative Urine Urobilinogen Normal Negative mg/dL Urine Leukocyte Esterase Negative Negative /uL Urine RBC 496 0 - 4 /hpf Urine WBC 20 0 - 5 /hpf Urine Squamous Epithelial Cells Few <5 /hpf Urine Bacteria Few H None Seen /hpf Urine Mucus Few None Seen Urine Glucose 4+ H Normal mg/dL Urine Opiates Screen Pos NEGATIVE Urine Fentanyl Screen Pos NEGATIVE Urine Barbiturates Screen Neg NEGATIVE Urine Phencyclidine Screen Neg NEGATIVE Urine Amphetamines Screen Neg NEGATIVE Urine Benzodiazepines Screen Pos NEGATIVE Urine Cocaine Screen Neg NEGATIVE Urine Cannabinoids Screen Neg NEGATIVE White Blood Count 11.0 H 4.4-10.8 10^3/uL Red Blood Count 4.63 4.0-5.20 10^6/uL Mean Corpuscular Volume 81.5 80.0-100.0 fL Mean Corpuscular Hemoglobin 26.0 L 28.0-32.0 pg Mean Corpuscular Hemoglobin Concent 31.9 L 32.0-36.0 g/dL Red Cell Distribution Width 17.3 H 11.8-14.3 % Platelet Count 286 140-450 10^3/uL Mean Platelet Volume 7.9 6.9-10.8 fL Neutrophils (%) (Auto) 87.6 H 37.0-80.0 % Lymphocytes (%) (Auto) 9.1 L 10.0-50.0 % Monocytes (%) (Auto) 3.1 0.0-12.0 % Eosinophils (%) (Auto) 0.0 0.0-7.0 % Basophils (%) (Auto) 0.2 0.0-2.0 % Neutrophils # (Auto) 9.6 H 1.6-8.6 10 ^3/uL Lymphocytes # (Auto) 1.0 0.4-5.4 10 ^3/uL Monocytes # (Auto) 0.3 0-1.3 10 ^3/uL Eosinophils # (Auto) 0 0-0.8 10 ^3/uL Basophils # (Auto) 0 0-0.2 10 ^3/uL Nucleated Red Blood Cells 0.0 % Sodium Level 137 136-145 mmol/L Potassium Level 4.4 3.5-5.1 mmol/L Chloride Level 104 98-107 mmol/L Carbon Dioxide Level 22 20-31 mmol/L Anion Gap 11 5-15 Blood Urea Nitrogen 14 9-23 mg/dL Creatinine 1.09 H 0.550-1.02 mg/dL Glomerular Filtration Rate Calc 66 >90 mL/min BUN/Creatinine Ratio 12.8 10.0-20.0 Serum Glucose 241 H 74-106 mg/dL Calcium Level 9.3 8.7-10.4 mg/dL Total Bilirubin 0.4 0.2-1.0 mg/dL Aspartate Amino Transferase (AST) 16 13-40 U/L Alanine Aminotransferase (ALT) 30 7-40 U/L Alkaline Phosphatase 96 46-116 U/L Troponin I High Sensitivity < 3 L </=34 ng/L Total Protein 7.4 5.7-8.2 g/dL Albumin 4.5 3.2-4.8 g/dL Beta HCG, Quantitative 0.1 L 1.5-4.2 mIU/mL Assessment Right hydronephrosis, moderate Right lower pole renal stone Plan/Recommendation Right endoscopic CVAC laser lithotripsy with right ureteral stent placement Plan discussed with: Patient, Other DAVID PEREZ MD Feb 15, 2024 07:44
[2024-02-15] MEDS: LOSARTAN POTASSIUM 50 MG TAB PO SCH (10:09)
[2024-02-15 10:49] VITALS: RESP 16; O2SAT 99
[2024-02-15] MEDS ORDERED: HYDROmorphone HCL 2 MG/ML VL/or syr IV PRN ×3 (11:15→15:15)
[2024-02-15] MEDS ORDERED: MORPHINE SULFATE INJ 2 MG/ml SYRG IV PRN (11:15)
[2024-02-15] MEDS ORDERED: KETOROLAC TROMETH 30 MG/ML 1ML VIAL IV ONE (11:15)
[2024-02-15] MEDS ORDERED: METOCLOPRAMIDE HCL 5MG/ml INJ 2ml VIAL IV ONE (11:15)
[2024-02-15] MEDS ORDERED: KETAMINE 50mg/ML 1ml syringe ONE (11:19)
[2024-02-15] MEDS ORDERED: ROCURONIUM 10MG/ML 10ML VIAL IV ONE (11:19)
[2024-02-15] MEDS ORDERED: SODIUM CHLORIDE LOCK 0 ML ONE (11:19)
[2024-02-15] MEDS ORDERED: MIDAZOLAM HCL 2MG/2ML 2ml VIAL (1mg/ml) ONE (11:19)
[2024-02-15] MEDS ORDERED: fentaNYL CITRATE 100 MCG/2 ML VL ONE ×2 (11:19→13:48)
[2024-02-15] MEDS ORDERED: MEPERIDINE HCL (50 MG/ML) 1 ML VIAL ONE (11:19)
[2024-02-15] MEDS ORDERED: PROPOFOL 10 MG/ML 20 ML IV ONE ×2 (11:19→13:48)
[2024-02-15] MEDS ORDERED: ONDANSETRON HCL 4 MG/2 ML VIAL ONE ×2 (11:19→14:34)
[2024-02-15] MEDS: ACCU-CHEK COMFORT CURVE STRIP VI ONE (11:33)
[2024-02-15] MEDS: ceFAZolin 2 GM/D5W100ml 100 ML IV ONE (13:10)
--- NOTE | 2024-02-15 13:17 | DVHPN2 ---
Reviewed: Care Plan, H&P, Labs, Medications, Previous Orders, Radiology Changes from previous H/P or p: No Changes Objective Vitals Vital Signs Date Time Temp Pulse Resp B/P (MAP) Pulse Ox O2 Delivery O2 Flow Rate FiO2 02/15/24 11:50 71 16 133/75 (94) 96 02/15/24 10:49 Room Air* 0 21 02/15/24 10:13 98.1 98.1 Intake/Output Intake and Output 02/15/24 07:00 Intake Total 50 ml Balance 50 ml Intake IV Total 50 ml Medications Current Medications Medications Dose Ordered Sig/Lilliam Route Start Time Stop Time Status Last Admin Dose Admin Losartan Potassium 100 mg DAILY PO 02/15/24 10:00 02/15/24 10:09 100 MG Ceftriaxone Sodium 50 ml @ 100 mls/hr DAILY@0200 IV 02/16/24 02:00 Diagnostic Test (Pha) 1 strip Q6HR 02/15/24 06:00 02/15/24 11:48 1 STRIP Insulin Human Regular Q6HR SC 02/15/24 06:00 02/15/24 06:11 2 UNITS Dextrose 50 ml UD PRN IV 02/15/24 04:00 Acetaminophen/ Hydrocodone Bitart 1 tab Q4HP PRN PO 02/15/24 04:00 02/15/24 06:31 1 TAB Ondansetron HCl 4 mg Q4HP PRN IV 02/15/24 04:00 Acetaminophen 650 mg Q6HP PRN PO 02/15/24 04:00 Morphine Sulfate 2 mg Q4HPRN PRN IV 02/15/24 04:00 Morphine Sulfate 1 mg Q30M PRN IV 02/15/24 11:15 02/15/24 13:16 Laboratory Results Laboratory Tests 02/14/24 20:15 02/15/24 07:00 Chemistry Test 02/14/24 20:15 Albumin 4.5 g/dL (3.2-4.8) Calcium Level 9.3 mg/dL (8.7-10.4) Total Protein 7.4 g/dL (5.7-8.2) LFT Test 02/14/24 20:15 Alanine Aminotransferase (ALT) 30 U/L (7-40) Alkaline Phosphatase 96 U/L (46-116) Aspartate Amino Transferase (AST) 16 U/L (13-40) Total Bilirubin 0.4 mg/dL (0.2-1.0) Urinalysis Test 02/14/24 21:04 Urine Color Colorless (Yellow) Urine Clarity Turbid (Clear) H Urine pH 5.5 (5.0-9.0) Urine Specific [place] 1.032 (1.001-1.035) Urine Protein 1+ (Negative) H Urine Ketones 1+ (Negative) H Urine Blood 3+ /uL (Negative) H Urine Nitrite Negative (Negative) Urine Bilirubin Negative (Negative) Urine Urobilinogen Normal mg/dL (Negative) Urine Leukocyte Esterase Negative /uL (Negative) Urine RBC 496 /hpf (0 - 4) Urine WBC 20 /hpf (0 - 5) Urine Squamous Epithelial Cells Few /hpf (<5) Urine Bacteria Few /hpf (None Seen) H Urine Mucus Few (None Seen) Urine Glucose 4+ mg/dL (Normal) H Labs and/or images reviewed: Labs reviewed by me, Image(s) reviewed by me Assessment/Plan Assessment/Plan Sepsis secondary to urinary tract infection: Urine cultures Acute right flank pain Urology Dr. Troy planning for cystoscopy lithotripsy and right ureteral stent placement Diabetes type 2 Hypertension Depression History of kidney stone Plan discussed with: Patient Date of Service: Feb 15, 2024 Billing Provider: KARLA BENDER MD Common Visit Codes: [id number] INP/OBS CARE(HIGH) KARLA BENDER MD Feb 15, 2024 13:17
[2024-02-15] MEDS: IOHEXOL 300 MG/ML 100ML BOTTLE IJ ONE (13:20)
[2024-02-15] MEDS ORDERED: SUCCINYLCHOLINE CHLORIDE 20 MG/ML 10ML VIAL IV ONE (13:46)
[2024-02-15] MEDS ORDERED: ePHEDrine SULFATE 50 MG/ML AMP ONE (14:28)
[2024-02-15] MEDS ORDERED: DexAMETHasone SOD PHOS 10MG/1ML VIAL INJ ONE (14:34)
[2024-02-15 14:54] VITALS: BP 129/81; PULSE 81; RESP 20; TEMP 97.9; O2SAT 92
[2024-02-15] MEDS ORDERED: SUGAMMADEX 200mg/2ml Vial (100MG/ML) IV ONE (14:58)
[2024-02-15 15:10] VITALS: PULSE 79; RESP 20; O2SAT 100
[2024-02-15] MEDS ORDERED: fentaNYL CITRATE 100 MCG/2 ML VL IV PRN (15:15)
[2024-02-15] MEDS ORDERED: oxyCODONE HCL 5MG TAB PO PRN (15:15)
[2024-02-15] MEDS ORDERED: NALOXONE HCL 0.4 MG/ML VIAL IV PRN (15:15)
[2024-02-15] MEDS ORDERED: hydrALAZINE HCL 20 MG/ML VL IV PRN (15:15)
[2024-02-15] MEDS ORDERED: ePHEDrine SULFATE 50 MG/ML AMP IV PRN (15:15)
[2024-02-15] MEDS ORDERED: FLUMAZENIL 0.1 MG/ML INJ 10ML MDV IV PRN (15:15)
--- NOTE | 2024-02-15 16:20 | DVH ---
C-ARM FLUOROSCOPY: PROCEDURE: Right-sided laser lithotripsy. FLUOROSCOPY TIME: 2 minutes 13 seconds
--- NOTE | 2024-02-15 16:22 | DVH ---
Date: 02/15/2024 03:43 PM Examination: XY KUB ABDOMEN SINGLE VIEW History: RIGHT URETEROSCOPIC LASER LITHOTRIPSY Comparison: XY KUB ABDOMEN SINGLE VIEW on DOS: 08/22/23 TECHNIQUE: 9 images of placement of a ureteral stent and right laser lithotripsy. FINDINGS: 133 seconds total fluoro time Cumulative dose: 58.65 mGy IMPRESSION: 1. Right-sided laser lithotripsy. 2. Total fluoro time 133 seconds 3. Cumulative dose: 50.65 mGy
[2024-02-15 17:00] VITALS: BP 129/81; PULSE 81; RESP 20; TEMP 97.9; O2SAT 92
--- NOTE | 2024-02-15 18:22 | DVHOP2 ---
Operative Report - 2 Report Details Date: 02/15/24 Preop Diagnosis: Right flank pain Right hydronephrosis Right lower pole renal lithiasis, 8-9 mm in presumed calyceal diverticulum Nausea and vomiting Postop Diagnosis: Same Surgeon: David Perez Anesthesiologist: Dr. Dietrich Anesthesia: General Consent: The patient was informed of the risks and benefits of the procedure. These include but are not limited to complications of anesthesia, postoperative infection, incomplete relief of symptoms, recurrence of symptoms, damage to blood vessels, nerves and tendons, deep venous thrombosis, pulmonary embolism and possible need for repeat surgery in the future. Indications for Surgery: 38-year-old female with history of right lower pole renal lithiasis measuring eight by 9 mm presumed to be situated in a calyceal diverticulum underwent an attempted ureteroscope laser lithotripsy yesterday at [facility]. Postoperatively patient complained of severe flank pain associated with nausea and vomiting and was admitted to [facility]. Repeat CT scan shows a 9 mm stone in the right lower pole calyceal system. Name of Procedure Performed Right ureteroscopy/pyeloscopy with attempted CVAC laser lithotripsy Cystoscopy with right retrograde pyelogram Cystoscopy with right ureteral stent placement Scott catheter placement Procedure Details Procedure Details: Patient was taken to the operating room and underwent general anesthesia. She was placed in lithotomy position with the area of the genitalia prepped and draped in usual sterile manner. Rigid cystoscope was then sampled and introduced into the bladder. The right ureteric orifice was cannulated with six [place] open-ended catheter which was advanced proximally and retrograde pyelogram was performed. The study did indicate a probable diverticular stone in the lower pole. Guidewire was then placed an open-ended catheter was removed. Navigator ureteral catheter access sheath was placed over the guidewire. Next the Calyxo CVAC ureteroscope was accessed into the renal pelvis and retroflexed. Multiple attempts to find the opening to the diverticular stone located in the lower calyceal system was unsuccessful. Ureteroscope was removed and guidewire was replaced. Ureteral access sheath was removed and then a six [place] by 26 cm polaris loop ureteral stent was positioned properly. Bladder was decompressed with a Scott catheter. Patient was awakened and taken to recovery room in stable condition Specimen: None Condition Fair Disposition DAVID PEREZ MD Feb 15, 2024 18:22
[2024-02-15] MEDS: MORPHINE SULFATE INJ 2 MG/ml SYRG IV PRN (20:28)
[2024-02-15 21:00] VITALS: BP 153/85; PULSE 83; RESP 18; TEMP 98; O2SAT 93
[2024-02-16] VITALS (7 sets, daily range): BP systolic 143–162; BP diastolic 75–90; PULSE 64–83; RESP 16–20; TEMP 97.7–98.4; O2SAT 92–96
[2024-02-16] MEDS: cefTRIAXone 1GM/50ML D5W 50 ML IV SCH (02:38)
[2024-02-16 06:23] LABS: Basophils # (auto) 0 10 ^3/uL (0-0.2); Basophils % (auto) 0.2 % (0.0-2.0); Eosinophils # (auto) 0 10 ^3/uL (0-0.8); Lymphocytes # (auto) 1.1 10 ^3/uL (0.4-5.4); Monocytes # (auto) 0.5 10 ^3/uL (0-1.3)
[2024-02-16 06:28] LABS: Hematocrit 35.1 % (36.0-46.0); Hemoglobin 11.2 g/dL (12.2-16.2); Lymphocytes % (auto) 14.3 % (10.0-50.0); Mean Corpuscular Hemoglobin 25.8 pg (28.0-32.0); Mean Corpuscular Hgb Conc. 31.9 g/dL (32.0-36.0); Mean Corpuscular Volume 80.9 fL (80.0-100.0); Monocytes % (auto) 5.6 % (0.0-12.0); Neutrophils # (auto) 6.4 10 ^3/uL (1.6-8.6); Neutrophils % (auto) 79.9 % (37.0-80.0); Platelet Count (auto) 248 10^3/uL (140-450); Red Blood Cells 4.34 10^6/uL (4.0-5.20); Red Cell Distribution Width 17.2 % (11.8-14.3)
[2024-02-16 06:35] LABS: Chloride 107 mmol/L (98-107); Sodium 139 mmol/L (136-145)
[2024-02-16 06:36] LABS: Anion Gap 6 (5-15); Calcium 8.9 mg/dL (8.7-10.4); Carbon Dioxide 26 mmol/L (20-31)
[2024-02-16 06:41] LABS: BUN/Creatinine Ratio 13.6 (10.0-20.0); Blood Urea Nitrogen 9 mg/dL (9-23); Glucose 163 mg/dL (74-106)
--- NOTE | 2024-02-16 11:14 | DVHPN2 ---
Reviewed: Care Plan, H&P, Labs, Medications, Previous Orders, Radiology Changes from previous H/P or p: No Changes Objective Vitals Vital Signs Date Time Temp Pulse Resp B/P (MAP) Pulse Ox O2 Delivery O2 Flow Rate FiO2 02/16/24 10:19 154/86 02/16/24 09:10 93 79 02/16/24 08:48 98.1 93 98.1 02/15/24 15:10 Mask 6.0 02/15/24 15:10 100 Intake/Output Intake and Output 02/16/24 07:00 Intake Total 1000 ml Output Total 2100 ml Balance -1100 ml Intake Oral 800 ml IV Total 200 ml Output Urine Total 2100 ml Medications Current Medications Medications Dose Ordered Sig/Lilliam Route Start Time Stop Time Status Last Admin Dose Admin Losartan Potassium 100 mg DAILY PO 02/15/24 10:00 02/16/24 10:19 100 MG Ceftriaxone Sodium 50 ml @ 100 mls/hr DAILY@0200 IV 02/16/24 02:00 02/16/24 02:38 100 MLS/HR Diagnostic Test (Pha) 1 strip Q6HR 02/15/24 06:00 02/16/24 06:21 1 STRIP Insulin Human Regular Q6HR SC 02/15/24 06:00 02/16/24 06:20 3 UNITS Dextrose 50 ml UD PRN IV 02/15/24 04:00 Acetaminophen/ Hydrocodone Bitart 1 tab Q4HP PRN PO 02/15/24 04:00 02/15/24 06:31 1 TAB Ondansetron HCl 4 mg Q4HP PRN IV 02/15/24 04:00 Acetaminophen 650 mg Q6HP PRN PO 02/15/24 04:00 Morphine Sulfate 2 mg Q4HPRN PRN IV 02/15/24 04:00 02/16/24 09:10 2 MG Laboratory Results Laboratory Tests 02/16/24 05:16 Chemistry Test 02/16/24 05:16 Calcium Level 8.9 mg/dL (8.7-10.4) Urinalysis Test 02/14/24 21:04 Urine Color Colorless (Yellow) Urine Clarity Turbid (Clear) H Urine pH 5.5 (5.0-9.0) Urine Specific [place] 1.032 (1.001-1.035) Urine Protein 1+ (Negative) H Urine Ketones 1+ (Negative) H Urine Blood 3+ /uL (Negative) H Urine Nitrite Negative (Negative) Urine Bilirubin Negative (Negative) Urine Urobilinogen Normal mg/dL (Negative) Urine Leukocyte Esterase Negative /uL (Negative) Urine RBC 496 /hpf (0 - 4) Urine WBC 20 /hpf (0 - 5) Urine Squamous Epithelial Cells Few /hpf (<5) Urine Bacteria Few /hpf (None Seen) H Urine Mucus Few (None Seen) Urine Glucose 4+ mg/dL (Normal) H Labs and/or images reviewed: Labs reviewed by me, Image(s) reviewed by me Assessment/Plan Assessment/Plan Sepsis secondary to urinary tract infection: Urine cultures Acute right flank pain: Status post surgery by Urology Dr. Troy Right ureteroscopy/pyeloscopy with attempted CVAC laser lithotripsy, Cystoscopy with right retrograde pyelogram, right ureteral stent placement Diabetes type 2 Hypertension Depression History of kidney stones We will await urology clearance for discharge Plan discussed with: Patient Date of Service: Feb 16, 2024 Billing Provider: KARLA BENDER MD Common Visit Codes: [id number] INP/OBS CARE(HIGH) KARLA BENDER MD Feb 16, 2024 11:14
[2024-02-16] MEDS: KETOROLAC TROMETH 30 MG/ML 1ML VIAL IV PRN (12:52)
[2024-02-16] MEDS ORDERED: POTA1080 PO (14:45)
[2024-02-16] MEDS ORDERED: LOSA-535 PO (14:45)
[2024-02-16] MEDS ORDERED: TAMS0.4C39 PO (14:45)
[2024-02-16] MEDS ORDERED: ESCI1TAB37 PO (14:45)
[2024-02-17 01:00] VITALS: BP 158/77; PULSE 78; RESP 20; TEMP 97.7; O2SAT 93
[2024-02-17 05:00] VITALS: BP 176/93; PULSE 76; RESP 20; TEMP 98.3; O2SAT 93
[2024-02-17 08:00] VITALS: RESP 16
--- NOTE | 2024-02-17 08:38 | DVHPN2 ---
Progress Note - Dictate Date Seen: Feb 17, 2024 Medical Necessity Reason Pt with a Central, PICC or Fol: No vital signs Vital Sign Date Time Temp Pulse Resp B/P (MAP) Pulse Ox O2 Delivery O2 Flow Rate FiO2 02/17/24 05:00 98.3 76 20 176/93 (120) 93 98.3 02/16/24 20:00 Room Air* 0 21 Total Intake and Output 02/16/24 02/16/24 02/17/24 15:00 23:00 07:00 Intake Total 50 ml 670 ml 600 ml Output Total 950 ml 750 ml Balance 50 ml -280 ml -150 ml medications Current Medications Medications Dose Ordered Sig/Lilliam Route Start Time Stop Time Status Last Admin Dose Admin Losartan Potassium 100 mg DAILY PO 02/15/24 10:00 02/16/24 10:19 100 MG Ceftriaxone Sodium 50 ml @ 100 mls/hr DAILY@0200 IV 02/16/24 02:00 02/17/24 02:26 100 MLS/HR Diagnostic Test (Pha) 1 strip Q6HR 02/15/24 06:00 02/17/24 06:25 1 STRIP Insulin Human Regular Q6HR SC 02/15/24 06:00 02/17/24 06:27 3 UNITS Dextrose 50 ml UD PRN IV 02/15/24 04:00 Acetaminophen/ Hydrocodone Bitart 1 tab Q4HP PRN PO 02/15/24 04:00 Hold 02/15/24 06:31 1 TAB Ondansetron HCl 4 mg Q4HP PRN IV 02/15/24 04:00 Acetaminophen 650 mg Q6HP PRN PO 02/15/24 04:00 Morphine Sulfate 2 mg Q4HPRN PRN IV 02/15/24 04:00 02/17/24 03:31 2 MG Ketorolac Tromethamine 30 mg Q6HPRN PRN IV 02/16/24 11:15 02/21/24 11:14 02/16/24 12:52 30 MG laboratory and microbiology Laboratory Tests 02/16/24 05:16 Test 02/16/24 05:16 Range/Units Serum Glucose 163 H 74-106 mg/dL Assessment/Plan cleared from urology standpoint Problems(with codes): (1) UTI (urinary tract infection) (2) Postoperative pain (3) Hydronephrosis, right Prognosis good Plan discussed with: Patient RUTHIE,RISHI QUESADA Feb 17, 2024 08:38
[2024-02-17 09:00] VITALS: BP 165/89; PULSE 72; RESP 16; TEMP 98.2; O2SAT 98
[2024-02-17] MEDS ORDERED: CIPR-173 PO (12:23)
--- NOTE | 2024-02-17 12:23 | DVHPN2 ---
Reviewed: Care Plan, H&P, Labs, Medications, Previous Orders, Radiology Changes from previous H/P or p: No Changes Objective Vitals Vital Signs Date Time Temp Pulse Resp B/P (MAP) Pulse Ox O2 Delivery O2 Flow Rate FiO2 02/17/24 10:26 165/85 02/17/24 10:25 72 18 02/17/24 09:00 98.2 98 98.2 02/17/24 08:00 Room Air* 0 21 Intake/Output Intake and Output 02/17/24 07:00 Intake Total 1320 ml Output Total 1700 ml Balance -380 ml Intake Oral 1270 ml IV Total 50 ml Output Urine Total 1700 ml Medications Current Medications Medications Dose Ordered Sig/Lilliam Route Start Time Stop Time Status Last Admin Dose Admin Losartan Potassium 100 mg DAILY PO 02/15/24 10:00 02/17/24 10:26 100 MG Ceftriaxone Sodium 50 ml @ 100 mls/hr DAILY@0200 IV 02/16/24 02:00 02/17/24 02:26 100 MLS/HR Diagnostic Test (Pha) 1 strip Q6HR 02/15/24 06:00 02/17/24 06:25 1 STRIP Insulin Human Regular Q6HR SC 02/15/24 06:00 02/17/24 11:52 3 UNITS Dextrose 50 ml UD PRN IV 02/15/24 04:00 Acetaminophen/ Hydrocodone Bitart 1 tab Q4HP PRN PO 02/15/24 04:00 Hold 02/15/24 06:31 1 TAB Ondansetron HCl 4 mg Q4HP PRN IV 02/15/24 04:00 Acetaminophen 650 mg Q6HP PRN PO 02/15/24 04:00 Morphine Sulfate 2 mg Q4HPRN PRN IV 02/15/24 04:00 02/17/24 10:25 2 MG Ketorolac Tromethamine 30 mg Q6HPRN PRN IV 02/16/24 11:15 02/21/24 11:14 02/16/24 12:52 30 MG Laboratory Results Laboratory Tests 02/16/24 05:16 Urinalysis Test 02/14/24 21:04 Urine Color Colorless (Yellow) Urine Clarity Turbid (Clear) H Urine pH 5.5 (5.0-9.0) Urine Specific [place] 1.032 (1.001-1.035) Urine Protein 1+ (Negative) H Urine Ketones 1+ (Negative) H Urine Blood 3+ /uL (Negative) H Urine Nitrite Negative (Negative) Urine Bilirubin Negative (Negative) Urine Urobilinogen Normal mg/dL (Negative) Urine Leukocyte Esterase Negative /uL (Negative) Urine RBC 496 /hpf (0 - 4) Urine WBC 20 /hpf (0 - 5) Urine Squamous Epithelial Cells Few /hpf (<5) Urine Bacteria Few /hpf (None Seen) H Urine Mucus Few (None Seen) Urine Glucose 4+ mg/dL (Normal) H Labs and/or images reviewed: Labs reviewed by me, Image(s) reviewed by me Assessment/Plan Assessment/Plan Sepsis secondary to urinary tract infection: Urine cultures Acute right flank pain: Right Lower pole kidney stone status post Right ureteroscopy/pyeloscopy with attempted CVAC laser lithotripsy, Cystoscopy with right retrograde pyelogram, right ureteral stent placement with Dr. Troy on 02/15/24 Diabetes type 2 Hypertension Depression History of kidney stones Cleared for discharge by Urology Plan discussed with: Patient Date of Service: Feb 17, 2024 Billing Provider: KARLA BENDER MD Common Visit Codes: [id number] INP/OBS CARE(HIGH) KARLA BENDER MD Feb 17, 2024 12:23
--- NOTE | 2024-02-17 12:29 | DVHDS2 ---
Discharge Summary Date of Admission Feb 15, 2024 at 03:53 Date of Discharge: Feb 17, 2024 Admitting Diagnosis Right flank pain Wounds: Right Lower pole kidney stone status post Right ureteroscopy/pyeloscopy with attempted CVAC laser lithotripsy, Cystoscopy with right retrograde pyelogram, right ureteral stent placement with Dr. Troy on 02/15/24 Labs/Diagnostic Data: Laboratory Results Test 02/17/24 11:21 02/16/24 05:16 02/14/24 21:04 02/14/24 20:15 POC Glucose 194 mg/dl (70-106) White Blood Count 8.0 10^3/uL (4.4-10.8) Red Blood Count 4.34 10^6/uL (4.0-5.20) Hemoglobin 11.2 g/dL (12.2-16.2) Hematocrit 35.1 % (36.0-46.0) Mean Corpuscular Volume 80.9 fL (80.0-100.0) Mean Corpuscular Hemoglobin 25.8 pg (28.0-32.0) Mean Corpuscular Hemoglobin Concent 31.9 g/dL (32.0-36.0) Red Cell Distribution Width 17.2 % (11.8-14.3) Platelet Count 248 10^3/uL (140-450) Mean Platelet Volume 8.1 fL (6.9-10.8) Neutrophils (%) (Auto) 79.9 % (37.0-80.0) Lymphocytes (%) (Auto) 14.3 % (10.0-50.0) Monocytes (%) (Auto) 5.6 % (0.0-12.0) Eosinophils (%) (Auto) 0.0 % (0.0-7.0) Basophils (%) (Auto) 0.2 % (0.0-2.0) Neutrophils # (Auto) 6.4 10 ^3/uL (1.6-8.6) Lymphocytes # (Auto) 1.1 10 ^3/uL (0.4-5.4) Monocytes # (Auto) 0.5 10 ^3/uL (0-1.3) Eosinophils # (Auto) 0 10 ^3/uL (0-0.8) Basophils # (Auto) 0 10 ^3/uL (0-0.2) Nucleated Red Blood Cells 0.0 % Sodium Level 139 mmol/L (136-145) Potassium Level 4.0 mmol/L (3.5-5.1) Chloride Level 107 mmol/L (98-107) Carbon Dioxide Level 26 mmol/L (20-31) Anion Gap 6 (5-15) Blood Urea Nitrogen 9 mg/dL (9-23) Creatinine 0.66 mg/dL (0.550-1.02) Glomerular Filtration Rate Calc 114 mL/min (>90) BUN/Creatinine Ratio 13.6 (10.0-20.0) Serum Glucose 163 mg/dL (74-106) Calcium Level 8.9 mg/dL (8.7-10.4) Urine Color Colorless (Yellow) Urine Clarity Turbid (Clear) Urine pH 5.5 (5.0-9.0) Urine Specific [place] 1.032 (1.001-1.035) Urine Protein 1+ (Negative) Urine Ketones 1+ (Negative) Urine Blood 3+ /uL (Negative) Urine Nitrite Negative (Negative) Urine Bilirubin Negative (Negative) Urine Urobilinogen Normal mg/dL (Negative) Urine Leukocyte Esterase Negative /uL (Negative) Urine RBC 496 /hpf (0 - 4) Urine WBC 20 /hpf (0 - 5) Urine Squamous Epithelial Cells Few /hpf (<5) Urine Bacteria Few /hpf (None Seen) Urine Mucus Few (None Seen) Urine Glucose 4+ mg/dL (Normal) Urine Opiates Screen Pos (NEGATIVE) Urine Fentanyl Screen Pos (NEGATIVE) Urine Barbiturates Screen Neg (NEGATIVE) Urine Phencyclidine Screen Neg (NEGATIVE) Urine Amphetamines Screen Neg (NEGATIVE) Urine Benzodiazepines Screen Pos (NEGATIVE) Urine Cocaine Screen Neg (NEGATIVE) Urine Cannabinoids Screen Neg (NEGATIVE) Total Bilirubin 0.4 mg/dL (0.2-1.0) Aspartate Amino Transferase (AST) 16 U/L (13-40) Alanine Aminotransferase (ALT) 30 U/L (7-40) Alkaline Phosphatase 96 U/L (46-116) Troponin I High Sensitivity < 3 ng/L (</=34) Total Protein 7.4 g/dL (5.7-8.2) Albumin 4.5 g/dL (3.2-4.8) Beta HCG, Quantitative 0.1 mIU/mL (1.5-4.2) Other Laboratory Tests 02/16/24 05:16 Brief Hx & Hospital Course: Patient with a history of right kidney stones came in for right flank pain. Patient underwent right ureteroscopy with the attempted CVA C laser lithotripsy, cystoscopy with a right retrograde pyelogram, right ureteral stent placement by Dr. Villareal on 02/15/2024. Treated with antibiotics for UTI postop course uneventful cleared for discharge by Urology. Grand Chain at home. Discharged home on Cipro. She will follow up with the Dr. Troy in 10 days Consults/Reason for consult Urology Operations or Procedures Right Lower pole kidney stone status post Right ureteroscopy/pyeloscopy with attempted CVAC laser lithotripsy, Cystoscopy with right retrograde pyelogram, right ureteral stent placement with Dr. Troy on 02/15/24 Condition at Discharge: Fair Final Diagnosis/Problems List Sepsis secondary to urinary tract infection: Urine cultures Acute right flank pain: Right Lower pole kidney stone status post Right ureteroscopy/pyeloscopy with attempted CVAC laser lithotripsy, Cystoscopy with right retrograde pyelogram, right ureteral stent placement with Dr. Troy on 02/15/24 Diabetes type 2 Hypertension Depression History of kidney stones Discharge Disposition: Home Discharge Instruct/Medications Diet: Regular Activity: Light activity Follow Up/Referral: Follow up with Urology Dr. Troy 10 days Follow up with your primary Dr Medications: Cipro Transmitted to the pharmacy Patient has Grand Chain at home 35 (Time taken for discharge summary 35 minutes) Discharge Statement: "Patient was advised to return to the ER or call 911 if any headaches, dizziness, shortness of breath, chest pain, abdominal pain, bleeding, fevers, or worsening of medical condition. Patient was counseled about treatment plan, medications, possible side effects, patientverbalized understanding. All questions were answered to the best of my ability. This discharge took greater then 30 minutes in planning, reviewing documentation, counseling the patient, and discussing with other team members." ASSESSMENT ASSESSMENT Hospital Course Improved Assessment Sepsis secondary to urinary tract infection: Urine cultures Acute right flank pain: Right Lower pole kidney stone status post Right ureteroscopy/pyeloscopy with attempted CVAC laser lithotripsy, Cystoscopy with right retrograde pyelogram, right ureteral stent placement with Dr. Troy on 02/15/24 Diabetes type 2 Hypertension Depression History of kidney stones Date of Service: Feb 17, 2024 Billing Provider: KARLA BENDER MD Common Visit Codes: [id number] DISCH DAY >30min KARLA BENDER MD Feb 17, 2024 12:29
[2024-02-17 13:00] VITALS: BP 167/96; PULSE 90; RESP 14; TEMP 98.5; O2SAT 94
== END 2024-02-17 16:00 | disposition home or self-care (01) | DRG 720 ==
LOC: ER 18:55 → OVERFLOW 02-15 03:53 → WEST WING 02-15 16:36
PROVIDERS: ADMIT Nurse Practitioner; ATTEND Family Medicine
PROC: BT1D1ZZ Fluoroscopy of Right Kidney, Ureter and Bladder using Low Osmolar Contrast (ICD-10-PCS; 2024-02-15)
PROC: 0T768DZ Dilation of Right Ureter with Intraluminal Device, Via Natural or Artificial Opening Endoscopic (ICD-10-PCS; principal; 2024-02-15 14:16)
DX: A41.9 Sepsis, unspecified organism (principal); N17.0 Acute kidney failure with tubular necrosis; N13.6 Pyonephrosis; E66.01 Morbid (severe) obesity due to excess calories; E11.9 Type 2 diabetes mellitus without complications; I10 Essential (primary) hypertension; N20.0 Calculus of kidney; F32.A Depression, unspecified; Z83.3 Family history of diabetes mellitus; Z82.49 Family history of ischemic heart disease and other diseases of the circulatory system; Z68.42 Body mass index [BMI] 45.0-49.9, adult; Z79.899 Other long term (current) drug therapy; Z79.4 Long term (current) use of insulin
CPT/HCPCS: 36415; 74018; 74176; 76000; 80048; 80053; 80307; 81001; 82962; 84484; 84702; 85014; 85018; 85025; 86850; 86900; 86901; 87086; 87088; G0378; J0330; J1100; J1815; J1885; J2250; J2405; J2704

== ENCOUNTER → 2024-03-18 | Outpatient (CLI) | payer MEDICAID ==
[2024-03-18] VITALS (7 sets, daily range): BP systolic 119–137; BP diastolic 66–77; PULSE 68–79; RESP 11–19; TEMP 97; O2SAT 96–97
[~2024-03-18] VITALS: Ht 172.7 cm; Wt 140.6 kg
[~2024-03-18] MED LIST changes: -AMLO1TAB22 PO; +ESCI1TAB37 PO; +HEPARIN SODIUM (PORCINE) 5000 UNITS/ML 1ML VIAL ONE; +HYDR1TAB97 PO; +IOHEXOL 300 MG/ML 100ML BOTTLE IJ ONE; -LEVO500T91 PO; +LIDOCAINE 2%HCL (LOCAL ANESTH.) INJ 10ml MDV ONE; +LIDOCAINE W/ EPINEPHRINE 1% 20ML VIAL ONE; +LOSA-535 PO; +MIDAZOLAM HCL 2MG/2ML 2ml VIAL (1mg/ml) ONE; +POTATAB2 PO; +cefTRIAXone 1GM/50ML D5W 50 ML IV ONE; +fentaNYL CITRATE 100 MCG/2 ML VL ONE
[2024-03-18 09:39] LABS: Basophils # (auto) 0 10 ^3/uL (0-0.2); Eosinophils # (auto) 0.1 10 ^3/uL (0-0.8); Lymphocytes # (auto) 1.4 10 ^3/uL (0.4-5.4); Monocytes # (auto) 0.3 10 ^3/uL (0-1.3); White Blood Cell 4.8 10^3/uL (4.4-10.8)
[2024-03-18 09:42] LABS: Basophils % (auto) 0.4 % (0.0-2.0); Eosinophils % (auto) 1.1 % (0.0-7.0); Hematocrit 35.5 % (36.0-46.0); Hemoglobin 11.2 g/dL (12.2-16.2); Lymphocytes % (auto) 28.6 % (10.0-50.0); Mean Corpuscular Hemoglobin 25.6 pg (28.0-32.0); Mean Corpuscular Hgb Conc. 31.7 g/dL (32.0-36.0); Mean Corpuscular Volume 80.9 fL (80.0-100.0); Monocytes % (auto) 6.8 % (0.0-12.0); Neutrophils % (auto) 63.1 % (37.0-80.0); Nucleated Red Blood Cells % 0.2 %; Platelet Count (auto) 230 10^3/uL (140-450); Red Blood Cells 4.38 10^6/uL (4.0-5.20); Red Cell Distribution Width 16.8 % (11.8-14.3)
[2024-03-18 09:52] LABS: Chloride 105 mmol/L (98-107); Potassium 4.2 mmol/L (3.5-5.1); Sodium 138 mmol/L (136-145)
[2024-03-18 09:53] LABS: Anion Gap 6 (5-15); Calcium 8.9 mg/dL (8.7-10.4); Carbon Dioxide 27 mmol/L (20-31)
[2024-03-18 10:02] LABS: Blood Urea Nitrogen 9 mg/dL (9-23); Glucose 162 mg/dL (74-106)
[2024-03-18 10:25] LABS: INR 0.96 (0.9-1.15); Partial Thromboplastin Time 28.4 SEC (24.5-34.5); Prothrombin Time 10.2 sec (9.3-11.8)
--- NOTE | 2024-03-18 17:23 | DVH ---
XY C ARM FLUOROSCOPY UP TO 60MIN, HISTORY: NEPHRO URETERAL STENT PROCEDURE: Informed consent was obtained. The patient was placed on the fluoroscopic table in a prone position and IV sedation administered. The right flank was prepped with chlorhexidine which was allo wed to dry and draped in the usual sterile fashion. Time out was performed. and the soft tissues infi ltrated with 1% lidocaine local anesthetic. Under ultrasound guidance, a 21 gauge Accu Stick needle w as advanced into a low upper pole posterior calyx, and a contrast nephrostogram performed. Over a m andril wire, exchange was made to a non-vascular access set, through which was advanced an 0.035 wire . Wire and catheter were advanced down the ureter and into the bladder. A 5 Fr Felice catheter was adva nced into the bladder confirmed with contrast injection. The catheter was secured in place and connec hector to a flow switch. A sterile dressing was applied. No immediate complication was identified. DAP 796 FLUOROSCOPY TIME: 2.3 minutes. CONTRAST USED: 15 mL. SEDATION: Dr. Yumiko Yañez was personally responsible for the administration of moderate sedation during the procedure performed, including the use of an independent trained observer who had no other duties during the procedure. The drugs utilized were IV fentanyl and versed (see nursing log for details). The total time of supervision by the attending physician was approximately 45 minutes. FINDINGS: Right kidney stones seen on prior CT. A right ureteral stent is visualized. Minimal right h ydronephrosis. Placement of a 5 Fr x 65 cm Felice catheter via a right lower pole subcostal access and into the bladder. IMPRESSION: Placement of a 5 Fr x 65 cm [place] catheter via a right kidney lower pole subcostal access and into the bladder for subsequent PCNL.
== END | disposition home or self-care (01) ==
LOC: XYW 07:06
PROVIDERS: ATTEND Radiology Diagnostic Radiology
DX: N20.0 Calculus of kidney (principal); N23 Unspecified renal colic; N13.30 Unspecified hydronephrosis; I10 Essential (primary) hypertension; E11.9 Type 2 diabetes mellitus without complications; E66.9 Obesity, unspecified; Z68.42 Body mass index [BMI] 45.0-49.9, adult; Z96.0 Presence of urogenital implants; Z98.891 History of uterine scar from previous surgery; Z98.890 Other specified postprocedural states; Z83.3 Family history of diabetes mellitus
CPT/HCPCS: 36415; 50433; 80048; 85025; 85610; 85730; C1758; C1894; J0696; J1644; J2003; J2250; J3010; J7040; Q9967; 76000; 76942; 99152

== ENCOUNTER 2024-03-19 06:23 | Inpatient (IN) | payer MEDICAID ==
[~2024-03-19] VITALS: Ht 172.7 cm; Wt 148.4 kg
[~2024-03-19 06:23] MED LIST changes: -HEPARIN SODIUM (PORCINE) 5000 UNITS/ML 1ML VIAL ONE; -IOHEXOL 300 MG/ML 100ML BOTTLE IJ ONE; -LIDOCAINE 2%HCL (LOCAL ANESTH.) INJ 10ml MDV ONE; -LIDOCAINE W/ EPINEPHRINE 1% 20ML VIAL ONE; -MIDAZOLAM HCL 2MG/2ML 2ml VIAL (1mg/ml) ONE; -cefTRIAXone 1GM/50ML D5W 50 ML IV ONE; -fentaNYL CITRATE 100 MCG/2 ML VL ONE
[2024-03-19] MEDS ORDERED: GLYCOPYRROLATE 0.2 MG/ML 1ML VIAL ONE (06:50)
[2024-03-19] MEDS ORDERED: ROCURONIUM 10MG/ML 10ML VIAL IV ONE (06:50)
[2024-03-19] MEDS ORDERED: PROPOFOL 10 MG/ML 20 ML IV ONE ×2 (06:50→07:38)
[2024-03-19] MEDS ORDERED: SUGAMMADEX 200mg/2ml Vial (100MG/ML) IV ONE (06:51)
[2024-03-19] MEDS ORDERED: DexAMETHasone SOD PHOS 10MG/1ML VIAL INJ ONE (06:51)
[2024-03-19] MEDS ORDERED: KETOROLAC TROMETH 30 MG/ML 1ML VIAL ONE (06:51)
[2024-03-19] MEDS ORDERED: LIDOCAINE 2% (LOCAL ANESTH.) PF 5ml SDV ONE (06:51)
[2024-03-19] MEDS ORDERED: ONDANSETRON HCL 4 MG/2 ML VIAL ONE (06:51)
[2024-03-19] MEDS: GABAPENTIN 300 MG CAP ONE (07:19)
[2024-03-19] MEDS: ACETAMINOPHEN IV 100 ML IV ONE (07:19)
[2024-03-19] MEDS: CELECOXIB 100 MG CAP ONE (07:19)
[2024-03-19] MEDS: CIPROFLOXACIN 400MG/200ML 200 ML IV ONE (07:30)
[2024-03-19] MEDS: GABAPENTIN 300 MG CAP PO ONE (07:30)
[2024-03-19] MEDS: CELECOXIB 100 MG CAP PO ONE (07:30)
[2024-03-19] MEDS: ACETAMINOPHEN IV 1000 MG/100ML (10MG/ML) IV ONE (07:30)
[2024-03-19] MEDS ORDERED: fentaNYL CITRATE 100 MCG/2 ML VL ONE (07:34)
[2024-03-19] MEDS ORDERED: ePHEDrine SULFATE 50 MG/ML AMP ONE (07:55)
[2024-03-19] MEDS ORDERED: MORPHINE SULFATE INJ 2 MG/ml SYRG IV PRN (09:45)
[2024-03-19] MEDS ORDERED: NITROGLYCERIN 0.4 MG SL TAB SL PRN (09:45)
[2024-03-19 09:46] VITALS: O2SAT 100
--- NOTE | 2024-03-19 09:48 | POSTOP ---
Post-Operative Note Post-Operative Note Preop Diagnosis Right lower pole calyceal diverticular stone Postop Diagnosis: Same Operation performed Right percutaneous nephrolithotripsy Specimen Some stone particles Anesthesia: General Anesthesiologist: Chuck Vega CRNA Blood Loss(fluid mgmt) 100 cc Surgeon David Perez Date 03/19/24 Time 09:46 DAVID PEREZ MD Mar 19, 2024 09:48
[2024-03-19] MEDS ORDERED: fentaNYL CITRATE 100 MCG/2 ML VL IV PRN (10:00)
[2024-03-19] MEDS ORDERED: NALOXONE HCL 0.4 MG/ML VIAL IV PRN (10:00)
[2024-03-19] MEDS ORDERED: ONDANSETRON HCL 4 MG/2 ML VIAL IV PRN ×2 (10:00→16:15)
[2024-03-19] MEDS ORDERED: hydrALAZINE HCL 20 MG/ML VL IV PRN ×2 (10:00→16:30)
[2024-03-19] MEDS ORDERED: ePHEDrine SULFATE 50 MG/ML AMP IV PRN (10:00)
[2024-03-19] MEDS ORDERED: FLUMAZENIL 0.1 MG/ML INJ 10ML MDV IV PRN (10:00)
[2024-03-19] MEDS: HYDROmorphone HCL 2 MG/ML VL/or syr ONE (10:09)
[2024-03-19] MEDS: HYDROmorphone HCL 2 MG/ML VL/or syr IV PRN (10:12)
[2024-03-19] MEDS: HYDROmorphone HCL 2 MG/ML VL/or syr IV ONE ×3 (10:22→10:55)
[2024-03-19 10:45] LABS: Hematocrit 36.6 % (36.0-46.0); Hemoglobin 11.5 g/dL (12.2-16.2)
[2024-03-19 11:08] LABS: Calcium 9.2 mg/dL (8.7-10.4); Chloride 106 mmol/L (98-107); Potassium 4.4 mmol/L (3.5-5.1); Sodium 137 mmol/L (136-145)
[2024-03-19 11:10] LABS: Anion Gap 5 (5-15); Carbon Dioxide 26 mmol/L (20-31)
[2024-03-19 11:15] LABS: BUN/Creatinine Ratio 10.9 (10.0-20.0); Blood Urea Nitrogen 10 mg/dL (9-23)
[2024-03-19 11:18] LABS: Glucose 234 mg/dL (74-106)
[2024-03-19] MEDS: oxyCODONE HCL 5MG TAB PO PRN (11:30)
[2024-03-19 12:20] VITALS: BP 155/92; PULSE 98; RESP 16; TEMP 98.1; O2SAT 97
[2024-03-19 13:38] VITALS: PULSE 97; RESP 16; O2SAT 98
[2024-03-19] MEDS ORDERED: ACETAMINOPHEN 325 MG TAB PO PRN (16:15)
[2024-03-19] MEDS ORDERED: DEXTROSE (50%) 50ML SYRG IV PRN (16:15)
--- NOTE | 2024-03-19 16:18 | DVHHP2 ---
History of Present Illness Reason for Visit: Abdominal pain History of Present Illness 38-year-old female with a history of type 2 diabetes, was admitted here by Dr. Troy for a right lower pole calyceal kidney stone, she had right percutaneous nephro lithotripsy and therefore she was admitted for IV fluids and IV antibiotics and pain control. Currently c/o right flank pain, was given morphine but not effective, will substitute it with Dilaudid since she reports severe pain. She has a history of recurrent lithotripsy, this is her 3rd. She has type 2 diabetes takes metformin at home, hypertension, depression Cardiovascular: HTN Endocrine: Diabetes Past Medical History Obesity Review of Systems Allergies: Coded Allergies: No Known Drug Allergy (Verified Allergy, Unknown, 03/15/24) Uncoded Allergies: NONE (Allergy, Unknown, 08/17/23) Medications Current Medications Medications Dose Ordered Sig/Lilliam Route Start Time Stop Time Status Last Admin Dose Admin Nitroglycerin 0.4 mg Q5MINP PRN SL 03/19/24 09:45 Morphine Sulfate 2 mg Q30M PRN IV 03/19/24 09:45 Oxycodone HCl 10 mg ONCE PRN PO 03/19/24 10:00 03/19/24 11:30 10 MG Hydromorphone HCl 0.5 mg Q4HPRN PRN IV 03/19/24 16:15 UNV Ondansetron HCl 4 mg Q4HPRN PRN IV 03/19/24 16:15 UNV Acetaminophen 650 mg Q6HP PRN PO 03/19/24 16:15 UNV Exam Vital Signs Vital Signs Date Time Temp Pulse Resp B/P (MAP) Pulse Ox O2 Delivery O2 Flow Rate FiO2 03/19/24 13:38 97 16 98 Nasal Cannula* 2 28 03/19/24 12:20 98.1 155/92 (113) 98.1 General Appearance: Alert, Oriented X3, mild distress Respiratory: Clear to auscultation, Normal air movement Abdominal: Normal bowel sounds, Soft, Other (Mild tenderness in the right flank) Extremities: No edema Labs/Xrays Labs Test 03/19/24 10:20 03/19/24 07:29 Range/Units Hemoglobin 11.5 L 12.2-16.2 g/dL Hematocrit 36.6 36.0-46.0 % Sodium Level 137 136-145 mmol/L Potassium Level 4.4 3.5-5.1 mmol/L Chloride Level 106 98-107 mmol/L Carbon Dioxide Level 26 20-31 mmol/L Anion Gap 5 5-15 Blood Urea Nitrogen 10 9-23 mg/dL Creatinine 0.92 # 0.550-1.02 mg/dL Glomerular Filtration Rate Calc 81 >90 mL/min BUN/Creatinine Ratio 10.9 10.0-20.0 Serum Glucose 234 H 74-106 mg/dL Calcium Level 9.2 8.7-10.4 mg/dL POC Glucose 179 H 70-106 mg/dl Assessment/Plan Assessment/Plan Right kidney stone Status post right nephrolithotripsy Type 2 diabetes Hypertension Obesity Depression Plan Pain control with Dilaudid p.r.n. Zofran p.r.n. IV fluids with normal saline Cefazolin IV Urinalysis and culture Hydralazine IV p.r.n. Monitor the blood pressure since it is low right now She takes losartan and hydralazine at home we will add once blood pressure is better Hold the metformin for now Plan discussed with: Patient My Orders Orders - LAWANDA JONES MD Procedure Category Date Status Time Hydromorphone Hcl Inj PHA 03/19/24 Transmitted (Dilaudid Innjecti 16:15 Ondansetron Hcl PHA 03/19/24 Transmitted (Zofran) 16:15 Acetaminophen Tablet PHA 03/19/24 Transmitted (Tylenol Tablet) 16:15 Comprehensive LAB 03/20/24 Verified Metabolic Panel 04:00 Hemoglobin A1c LAB 03/20/24 Verified 04:00 Complete Blood Count LAB 03/20/24 Verified 04:00 Magnesium LAB 03/20/24 Verified 04:00 Glucose Blood PHA 03/19/24 Verified (Accu-Chek Comfort 17:00 Bedtime Insulin Scale PHA 03/19/24 Verified 22:00 Moderate Insulin Ss PHA 03/19/24 Verified 17:00 Dextrose 50% Syringe PHA 03/19/24 Verified 16:15 Date of Service: Mar 19, 2024 Billing Provider: LAWANDA JONES MD Common Visit Codes: [id number] INP/OBS CARE (HIGH) LAWANDA JONES MD Mar 19, 2024 16:18
--- NOTE | 2024-03-19 16:33 | DVH ---
C-ARM FLUOROSCOPY: PROCEDURE: Right percutaneous nephrostomy FLUOROSCOPY TIME: 432.9 seconds DAP: 259.5 mgy FINDINGS: Spot intraoperative C arm radiographs demonstrating right percutaneous nephrostomy. IMPRESSION: Please refer to surgical report for detailed findings.
[2024-03-19 17:00] VITALS: BP 137/77; PULSE 77; RESP 16; TEMP 97.9; O2SAT 96
[2024-03-19] MEDS: HYDROMORPHONE HCL 1 MG/ML INJ IV PRN (17:26)
[2024-03-19] MEDS: SODIUM CHLORIDE 0.9% 1,000 ML IV SCH (17:28)
[2024-03-19] MEDS: ACCU-CHEK COMFORT CURVE STRIP VI SCH (18:20)
[2024-03-19] MEDS: InsuLIN REG 1unit/0.01ml Soln (100units/ml) SC SCH ×2 (18:21→21:48)
[2024-03-19 19:16] LABS: Urine Bacteria None Seen /hpf (None Seen)
[2024-03-19 19:38] LABS: Urine Blood 1+ /uL (Negative); Urine Clarity Clear (Clear); Urine Color Light-Yellow (Yellow); Urine Protein, UAD TRACE (Negative); Urine Specific Gravity 1.026 (1.001-1.035); Urine Urobilinogen Normal (Negative); Urine WBC 18 /hpf (0 - 5); Urine pH 6.5 (5.0-9.0)
[2024-03-19 21:00] VITALS: BP 142/67; PULSE 74; RESP 20; TEMP 98.7; O2SAT 96
[2024-03-19] MEDS: ceFAZolin 1GM/50ML 50 ML IV SCH (21:39)
[2024-03-20] VITALS (8 sets, daily range): BP systolic 128–159; BP diastolic 60–78; PULSE 73–86; RESP 16–20; TEMP 98–99.2; O2SAT 95–97
[2024-03-20 07:57] LABS: Basophils # (auto) 0 10 ^3/uL (0-0.2); Basophils % (auto) 0.2 % (0.0-2.0); Eosinophils # (auto) 0 10 ^3/uL (0-0.8); Eosinophils % (auto) 0.2 % (0.0-7.0); Hematocrit 32.8 % (36.0-46.0); Lymphocytes # (auto) 1.9 10 ^3/uL (0.4-5.4); Monocytes # (auto) 0.6 10 ^3/uL (0-1.3); Nucleated Red Blood Cells % 0.1 %
[2024-03-20 07:59] LABS: Alanine Aminotransferase 16 U/L (7-40); Alkaline Phosphatase 74 U/L (46-116); Calcium 8.9 mg/dL (8.7-10.4); Carbon Dioxide 25 mmol/L (20-31); Chloride 106 mmol/L (98-107); Triglycerides 79 mg/dL (< 150)
[2024-03-20 08:00] LABS: Albumin 3.8 g/dL (3.2-4.8); Anion Gap 7 (5-15); BUN/Creatinine Ratio 12.3 (10.0-20.0); Bilirubin, Total 0.4 mg/dL (0.2-1.0); Cholesterol 160 mg/dL (< 200); HDL Cholesterol 44 mg/dL (40-59); Sodium 138 mmol/L (136-145); Total Protein 6.3 g/dL (5.7-8.2)
[2024-03-20 08:02] LABS: Hemoglobin 10.6 g/dL (12.2-16.2); Lymphocytes % (auto) 21.2 % (10.0-50.0); Mean Corpuscular Hemoglobin 26.2 pg (28.0-32.0); Mean Corpuscular Hgb Conc. 32.4 g/dL (32.0-36.0); Mean Corpuscular Volume 81.1 fL (80.0-100.0); Monocytes % (auto) 6.5 % (0.0-12.0); Neutrophils # (auto) 6.4 10 ^3/uL (1.6-8.6); Neutrophils % (auto) 71.9 % (37.0-80.0); Platelet Count (auto) 252 10^3/uL (140-450); Red Blood Cells 4.04 10^6/uL (4.0-5.20); Red Cell Distribution Width 16.9 % (11.8-14.3); White Blood Cell 8.9 10^3/uL (4.4-10.8)
[2024-03-20 08:07] LABS: Aspartate Aminotransferase 11 U/L (13-40); Blood Urea Nitrogen 8 mg/dL (9-23); Glucose 171 mg/dL (74-106); LDL Cholesterol 107 mg/dL (< 100)
--- NOTE | 2024-03-20 09:10 | DVHPN2 ---
Progress Note - Dictate Date Seen: Mar 20, 2024 Has the PT tested + for MRSA If YES, has PT been informed?: No Medical Necessity Reason Pt with a Central, PICC or Fol: Yes The following are medically ne: Scott Catheter Medical Necessity Reason POD#1 s/p right PCNL Subjective tolerating Scott and nephrostomy vital signs Vital Sign Date Time Temp Pulse Resp B/P (MAP) Pulse Ox O2 Delivery O2 Flow Rate FiO2 03/20/24 08:00 86 16 Room Air* 0 21 03/20/24 06:31 135/69 03/20/24 04:53 98.0 97 98.0 Total Intake and Output 03/19/24 03/19/24 03/20/24 15:00 23:00 07:00 Intake Total 700 ml 400 ml Output Total 280 ml 650 ml 1000 ml Balance -280 ml 50 ml -600 ml medications Current Medications Medications Dose Ordered Sig/Lilliam Route Start Time Stop Time Status Last Admin Dose Admin Nitroglycerin 0.4 mg Q5MINP PRN SL 03/19/24 09:45 Hydromorphone HCl 0.5 mg Q4HPRN PRN IV 03/19/24 16:15 03/20/24 06:01 0.5 MG Ondansetron HCl 4 mg Q4HPRN PRN IV 03/19/24 16:15 Acetaminophen 650 mg Q6HP PRN PO 03/19/24 16:15 Diagnostic Test (Pha) 1 strip ACHS 03/19/24 17:00 03/20/24 06:01 1 STRIP Insulin Human Regular HS SC 03/19/24 22:00 03/19/24 21:48 6 UNITS Insulin Human Regular AC SC 03/19/24 17:00 03/20/24 06:39 3 UNITS Dextrose 50 ml UD PRN IV 03/19/24 16:15 Sodium Chloride 1,000 ml @ 100 mls/hr Q10H IV 03/19/24 16:15 03/20/24 01:43 100 MLS/HR Cefazolin Sodium 50 ml @ 100 mls/hr Q8HR IV 03/19/24 22:00 03/20/24 06:01 100 MLS/HR Hydralazine HCl 10 mg Q6HP PRN IV 03/19/24 16:30 objective Scott clear. Will be removed. laboratory and microbiology Laboratory Tests 03/20/24 07:25 Test 03/20/24 07:25 Range/Units Serum Glucose 171 H 74-106 mg/dL Problem List Right lower pole diverticular stone, s/p percutaneous nephrolithotripsy Assessment/Plan CT Scan to evaluate status D/C Scott May clamp nephrostomy Plan discussed with: Patient DAVID PEREZ MD Mar 20, 2024 09:10
--- NOTE | 2024-03-20 10:05 | DVH ---
CT ABDOMEN AND PELVIS WITHOUT CONTRAST CLINICAL HISTORY: kidney stone TECHNIQUE: Multiple contiguous axial images of the abdomen and pelvis without intravenous contrast. The images were reformatted degenerate coronal and sagittal reconstructions. All CT scans at this medical facility are performed using dose modulation techniques as appropriate t o a performed exam including the following:Automated exposure control was utilized; adjustment of the MA and/or KV according to patient size; and use of iterative reconstruction technique. Radiation Dose Information: CT Dose: CTDI volume is 27.52 mGy. Dose-length product is 1678.52 mGy*cm Comparison: CT CT AB PEL WO CON-NO ORAL OR IV on DOS: 02/14/24 FINDINGS: Evaluation of the abdomen and pelvis is limited without intravenous contrast. There has been interval placement of a right nephrostomy tube with the catheter tip in the right sri l pelvis. There is also a right ureteral stent with the proximal loop in the right renal pelvis and t he distal loop within the bladder. There are a few punctate calculi in the upper to midpole of the ri ght kidney measuring 2-3 mm. There is no right renal hydronephrosis. There are stable calculi in the lower pole of the left kidney. There is no left renal hydronephrosis. There is no evidence of a urete ral calculus or hydroureter. There is a Scott catheter in the bladder which is decompressed. There is no obvious bladder calculus. The liver, gallbladder, pancreas, adrenal glands, and spleen appear within normal limits. There is no gross evidence of abdominal lymphadenopathy. There is no free fluid or free air. The stomach grossly appears unremarkable. The small and large bowel loops demonstrate normal caliber . The abdominal aorta and IVC appear within normal limits. Pelvic organ appears within normal limits. There is no gross evidence of a pelvic mass. There is no free fluid collection. There is mild scarring versus atelectasis in the posterior lung bases. There is no acute osseous abnormality. IMPRESSION: 1. Interval placement of right nephrostomy tube and right ureteral stent. There is no evidence of rig ht renal hydronephrosis or hydroureter. There are a few punctate calculi in the upper to midpole of t he right kidney measuring 2-3 mm. 2. Stable small calculi in the lower pole of the left kidney without evidence of hydronephrosis. 3. There is a Scott catheter in the bladder which is decompressed. There is no obvious bladder calcu rita. HS:Y
--- NOTE | 2024-03-20 11:32 | DVHPN2 ---
Subjective Doing well c/o pain Changes from previous H/P or p: Changes Objective Vitals Vital Signs Date Time Temp Pulse Resp B/P (MAP) Pulse Ox O2 Delivery O2 Flow Rate FiO2 03/20/24 10:38 70 18 153/76 03/20/24 09:00 99.2 95 99.2 03/20/24 08:00 Room Air* 0 21 Intake/Output Intake and Output 03/20/24 07:00 Intake Total 1100 ml Output Total 1930 ml Balance -830 ml Intake Oral 1000 ml IV Total 100 ml Output Urine Total 1650 ml Drainage Total 280 ml General Appearance: Alert, Oriented X3, Cooperative Lungs: Clear to auscultation, Normal air movement Cardiovascular: Regular rate, Normal S1, Normal S2 Abdomen: Normal bowel sounds, Soft, No tenderness Extremities: No edema Medications Current Medications Medications Dose Ordered Sig/Lilliam Route Start Time Stop Time Status Last Admin Dose Admin Nitroglycerin 0.4 mg Q5MINP PRN SL 03/19/24 09:45 Hydromorphone HCl 0.5 mg Q4HPRN PRN IV 03/19/24 16:15 03/20/24 10:08 0.5 MG Ondansetron HCl 4 mg Q4HPRN PRN IV 03/19/24 16:15 Acetaminophen 650 mg Q6HP PRN PO 03/19/24 16:15 Diagnostic Test (Pha) 1 strip ACHS 03/19/24 17:00 03/20/24 11:14 1 STRIP Insulin Human Regular HS SC 03/19/24 22:00 03/19/24 21:48 6 UNITS Insulin Human Regular AC SC 03/19/24 17:00 03/20/24 06:39 3 UNITS Dextrose 50 ml UD PRN IV 03/19/24 16:15 Sodium Chloride 1,000 ml @ 100 mls/hr Q10H IV 03/19/24 16:15 03/20/24 01:43 100 MLS/HR Cefazolin Sodium 50 ml @ 100 mls/hr Q8HR IV 03/19/24 22:00 03/20/24 06:01 100 MLS/HR Hydralazine HCl 10 mg Q6HP PRN IV 03/19/24 16:30 Laboratory Results Laboratory Tests 03/20/24 07:25 Chemistry Test 03/20/24 07:25 Albumin 3.8 g/dL (3.2-4.8) Calcium Level 8.9 mg/dL (8.7-10.4) Magnesium Level 2.0 mg/dL (1.6-2.6) Total Protein 6.3 g/dL (5.7-8.2) Lipid panel Test 03/20/24 07:25 Cholesterol Level 160 mg/dL (< 200) HDL Cholesterol 44 mg/dL (40-59) Triglycerides Level 79 mg/dL (< 150) LFT Test 03/20/24 07:25 Alanine Aminotransferase (ALT) 16 U/L (7-40) Alkaline Phosphatase 74 U/L (46-116) Aspartate Amino Transferase (AST) 11 U/L (13-40) L Total Bilirubin 0.4 mg/dL (0.2-1.0) HgA1c, TSH Test 03/20/24 07:25 Hemoglobin A1c 7.8 % A1C (<5.7) H Urinalysis Test 03/19/24 19:00 Urine Color Light-yellow (Yellow) Urine Clarity Clear (Clear) Urine pH 6.5 (5.0-9.0) Urine Specific [place] 1.026 (1.001-1.035) Urine Protein Trace (Negative) H Urine Ketones Negative (Negative) Urine Blood 1+ /uL (Negative) H Urine Nitrite Negative (Negative) Urine Bilirubin Negative (Negative) Urine Urobilinogen Normal mg/dL (Negative) Urine Leukocyte Esterase 2+ /uL (Negative) Urine RBC 38 /hpf (0 - 4) Urine WBC 18 /hpf (0 - 5) Urine Squamous Epithelial Cells None seen /hpf (<5) Urine Bacteria None seen /hpf (None Seen) Urine Glucose 4+ mg/dL (Normal) H Assessment/Plan Assessment/Plan Right kidney stone Status post right nephrolithotripsy Type 2 diabetes Hypertension Obesity Depression Plan Pain control with Dilaudid p.r.n. Zofran p.r.n. IV fluids with normal saline Cefazolin IV Urinalysis and culture Hydralazine IV p.r.n. Monitor the blood pressure since it is low right now She takes losartan and hydralazine at home we will add once blood pressure is better Hold the metformin for now 03/20/2024: Continue the current management for pain control and IV fluids and IV antibiotics Blood pressure is elevated, restart her home medications losartan 100 mg daily and hydralazine 50 mg 3 times a day Add Lantus for better glycemic control 10 units b.i.d. Continue to hold metformin Out of bed as tolerated Urology recommended to DC the Scott Plan discussed with: Patient My Orders Orders - LAWANDA JONES MD Procedure Category Date Status Time Hydromorphone Hcl Inj PHA 03/19/24 In Process (Dilaudid Innjecti 16:15 Ondansetron Hcl PHA 03/19/24 In Process (Zofran) 16:15 Acetaminophen Tablet PHA 03/19/24 In Process (Tylenol Tablet) 16:15 Glucose Blood PHA 03/19/24 In Process (Accu-Chek Comfort 17:00 Insulin R (Human) PHA 03/19/24 In Process (Insulin R) 22:00 Insulin R (Human) PHA 03/19/24 In Process (Insulin R) 17:00 Dextrose 50% Syringe PHA 03/19/24 In Process 16:15 Sodium Chloride 0.9% PHA 03/19/24 In Process 16:15 Cefazolin 1gm/50ml PHA 03/19/24 In Process (Ancef) 22:00 Urine Bacterial BELLE 03/19/24 In Process Culture 16:15 Hydralazine Injection PHA 03/19/24 In Process (Apresoline Inject 16:30 Consistent DIET 03/19/24 Transmitted Carb(Ccho)Diabetes Dinner Date of Service: Mar 20, 2024 Billing Provider: LAWANDA JONES MD Common Visit Codes: [id number] INP/OBS CARE(HIGH) LAWANDA JONES MD Mar 20, 2024 11:32
[2024-03-20] MEDS: SODIUM CHLORIDE 0.9% 1,000 ML IV SCH (11:45)
[2024-03-20] MEDS: INSULIN LANTUS (GLARGINE) 1 /0.01ml (100units/ml) SC ONE (12:18)
[2024-03-20] MEDS: LOSARTAN POTASSIUM 50 MG TAB PO ONE (12:20)
[2024-03-20] MEDS: hydrALAZINE HCL 25 MG TAB PO SCH (14:07)
[2024-03-20] MEDS: INSULIN LANTUS (GLARGINE) 1 /0.01ml (100units/ml) SC SCH (21:39)
[2024-03-21 01:00] VITALS: BP_SYST 143; BP_SYST 164; BP_DIAS 81; BP_DIAS 83; PULSE 86; RESP 18; TEMP 98.2; O2SAT 96
[2024-03-21 05:00] VITALS: BP 146/70; PULSE 84; RESP 17; TEMP 98.8; O2SAT 93
[2024-03-21 05:50] LABS: Anion Gap 6 (5-15); Carbon Dioxide 25 mmol/L (20-31); Chloride 107 mmol/L (98-107); Potassium 3.6 mmol/L (3.5-5.1); Sodium 138 mmol/L (136-145)
[2024-03-21 05:56] LABS: BUN/Creatinine Ratio 11.3 (10.0-20.0)
[2024-03-21 05:57] LABS: Blood Urea Nitrogen 7 mg/dL (9-23); Calcium 8.6 mg/dL (8.7-10.4); Glucose 148 mg/dL (74-106)
[2024-03-21 08:00] VITALS: RESP 18; O2SAT 98
--- NOTE | 2024-03-21 08:04 | DVHPN2 ---
Progress Note - Dictate Date Seen: Mar 21, 2024 Has the PT tested + for MRSA If YES, has PT been informed?: No Medical Necessity Reason Pt with a Central, PICC or Fol: Yes Medical Necessity Reason Patient is postop day 2. Status post right PCNL Subjective Patient rates the pain and her nephrostomy tube site and eight out of 10 vital signs Vital Sign Date Time Temp Pulse Resp B/P (MAP) Pulse Ox O2 Delivery O2 Flow Rate FiO2 03/21/24 05:26 146/70 03/21/24 05:00 98.8 84 17 93 98.8 03/20/24 20:00 Room Air* 0 21 Total Intake and Output 03/20/24 03/20/24 03/21/24 15:00 23:00 07:00 Intake Total 425 ml 1405 ml Output Total 400 ml 500 ml Balance 25 ml 905 ml medications Current Medications Medications Dose Ordered Sig/Lilliam Route Start Time Stop Time Status Last Admin Dose Admin Nitroglycerin 0.4 mg Q5MINP PRN SL 03/19/24 09:45 Hydromorphone HCl 0.5 mg Q4HPRN PRN IV 03/19/24 16:15 03/21/24 04:09 0.5 MG Ondansetron HCl 4 mg Q4HPRN PRN IV 03/19/24 16:15 Acetaminophen 650 mg Q6HP PRN PO 03/19/24 16:15 Diagnostic Test (Pha) 1 strip ACHS 03/19/24 17:00 03/21/24 06:43 1 STRIP Insulin Human Regular HS SC 03/19/24 22:00 03/20/24 21:40 4 UNITS Insulin Human Regular AC SC 03/19/24 17:00 03/21/24 06:44 2 UNITS Dextrose 50 ml UD PRN IV 03/19/24 16:15 Cefazolin Sodium 50 ml @ 100 mls/hr Q8HR IV 03/19/24 22:00 03/21/24 05:26 100 MLS/HR Hydralazine HCl 10 mg Q6HP PRN IV 03/19/24 16:30 Insulin Glargine 10 units BID@0700,2200 SC 03/20/24 22:00 03/21/24 06:45 10 UNITS Losartan Potassium 100 mg DAILY PO 03/21/24 10:00 Hydralazine HCl 50 mg TID PO 03/20/24 14:00 03/21/24 05:26 50 MG Sodium Chloride 1,000 ml @ 75 mls/hr [id number] IV 03/20/24 11:45 03/21/24 05:27 75 MLS/HR objective Nephrostomy tube shows clear urine output. It was removed and the site was covered with dressing. laboratory and microbiology Laboratory Tests 03/21/24 05:05 03/20/24 07:25 Test 03/21/24 05:05 Range/Units Serum Glucose 148 H 74-106 mg/dL Problem List Right lower pole diverticular stone, s/p percutaneous nephrolithotripsy Minimal residual stones reported Indwelling right ureteral stent Assessment/Plan Pain control and discharged when stable Outpatient cystoscopy with stent removal to be arranged Plan discussed with: Patient DAVID PEREZ MD Mar 21, 2024 08:04
[2024-03-21 09:00] VITALS: BP 150/69; PULSE 78; RESP 16; TEMP 98.4; O2SAT 98
[2024-03-21] MEDS: LOSARTAN POTASSIUM 50 MG TAB PO SCH (09:29)
--- NOTE | 2024-03-21 11:13 | DVHDS2 ---
Discharge Summary Date of Admission Mar 19, 2024 at 09:45 Date of Discharge: Mar 21, 2024 Labs/Diagnostic Data: Laboratory Results Test 03/21/24 05:34 03/21/24 05:05 03/20/24 07:25 03/19/24 19:00 POC Glucose 157 mg/dl (70-106) Sodium Level 138 mmol/L (136-145) Potassium Level 3.6 mmol/L (3.5-5.1) Chloride Level 107 mmol/L (98-107) Carbon Dioxide Level 25 mmol/L (20-31) Anion Gap 6 (5-15) Blood Urea Nitrogen 7 mg/dL (9-23) Creatinine 0.62 mg/dL (0.550-1.02) Glomerular Filtration Rate Calc 116 mL/min (>90) BUN/Creatinine Ratio 11.3 (10.0-20.0) Serum Glucose 148 mg/dL (74-106) Calcium Level 8.6 mg/dL (8.7-10.4) White Blood Count 8.9 10^3/uL (4.4-10.8) Red Blood Count 4.04 10^6/uL (4.0-5.20) Hemoglobin 10.6 g/dL (12.2-16.2) Hematocrit 32.8 % (36.0-46.0) Mean Corpuscular Volume 81.1 fL (80.0-100.0) Mean Corpuscular Hemoglobin 26.2 pg (28.0-32.0) Mean Corpuscular Hemoglobin Concent 32.4 g/dL (32.0-36.0) Red Cell Distribution Width 16.9 % (11.8-14.3) Platelet Count 252 10^3/uL (140-450) Mean Platelet Volume 7.7 fL (6.9-10.8) Neutrophils (%) (Auto) 71.9 % (37.0-80.0) Lymphocytes (%) (Auto) 21.2 % (10.0-50.0) Monocytes (%) (Auto) 6.5 % (0.0-12.0) Eosinophils (%) (Auto) 0.2 % (0.0-7.0) Basophils (%) (Auto) 0.2 % (0.0-2.0) Neutrophils # (Auto) 6.4 10 ^3/uL (1.6-8.6) Lymphocytes # (Auto) 1.9 10 ^3/uL (0.4-5.4) Monocytes # (Auto) 0.6 10 ^3/uL (0-1.3) Eosinophils # (Auto) 0 10 ^3/uL (0-0.8) Basophils # (Auto) 0 10 ^3/uL (0-0.2) Nucleated Red Blood Cells 0.1 % Hemoglobin A1c 7.8 % A1C (<5.7) Magnesium Level 2.0 mg/dL (1.6-2.6) Total Bilirubin 0.4 mg/dL (0.2-1.0) Aspartate Amino Transferase (AST) 11 U/L (13-40) Alanine Aminotransferase (ALT) 16 U/L (7-40) Alkaline Phosphatase 74 U/L (46-116) Total Protein 6.3 g/dL (5.7-8.2) Albumin 3.8 g/dL (3.2-4.8) Triglycerides Level 79 mg/dL (< 150) Cholesterol Level 160 mg/dL (< 200) LDL Cholesterol 107 mg/dL (< 100) HDL Cholesterol 44 mg/dL (40-59) Urine Color Light-yellow (Yellow) Urine Clarity Clear (Clear) Urine pH 6.5 (5.0-9.0) Urine Specific [place] 1.026 (1.001-1.035) Urine Protein Trace (Negative) Urine Ketones Negative (Negative) Urine Blood 1+ /uL (Negative) Urine Nitrite Negative (Negative) Urine Bilirubin Negative (Negative) Urine Urobilinogen Normal mg/dL (Negative) Urine Leukocyte Esterase 2+ /uL (Negative) Urine RBC 38 /hpf (0 - 4) Urine WBC 18 /hpf (0 - 5) Urine Squamous Epithelial Cells None seen /hpf (<5) Urine Bacteria None seen /hpf (None Seen) Urine Glucose 4+ mg/dL (Normal) Other Laboratory Tests 03/21/24 05:05 03/20/24 07:25 Brief Hx & Hospital Course: Final diagnoses: Right kidney stone Status post right nephrolithotripsy Type 2 diabetes Hypertension Obesity Depression She had a nephrostomy tube done by Dr. Troy on the right side with lithotripsy She had a Scott catheter postoperatively which was removed yesterday and she did well and she has been urinating fine with clear urine The nephrostomy tube was discontinued by Dr. Troy this morning She is still having some pain Vital signs are stable blood pressure is slightly high at 1 50/69 Overall she is doing better and therefore she will be discharged home later today to continue Cipro and [place] which she takes at home and follow up with Dr. Troy as scheduled as an outpatient for cystoscopy and stent removal Condition at Discharge: Stable Final Diagnosis/Problems List Right kidney stone Status post right nephrolithotripsy Type 2 diabetes Hypertension Obesity Depression Discharge Disposition: Home SNF Discharge Will this Physician continue t: No Discharge Instruct/Medications Diet: Consistent carbohydrate, Cardiac 2g Na,low cholest Activity: No Restrictions, As Tolerated Follow Up/Referral: Dr. Troy 1 week Medications: Continue Cipro and [place] at home (already has a prescription) Resume home medications Discharge Statement: "Patient was advised to return to the ER or call 911 if any headaches, dizziness, shortness of breath, chest pain, abdominal pain, bleeding, fevers, or worsening of medical condition. Patient was counseled about treatment plan, medications, possible side effects, patientverbalized understanding. All questions were answered to the best of my ability. This discharge took greater then 30 minutes in planning, reviewing documentation, counseling the patient, and discussing with other team members." ASSESSMENT ASSESSMENT Assessment Right kidney stone Status post right nephrolithotripsy Type 2 diabetes Hypertension Obesity Depression Date of Service: Mar 21, 2024 Billing Provider: LAWANDA JONES MD Common Visit Codes: 70550-EAX/OBS DISCH DAY >30min LAWANDA JONES MD Mar 21, 2024 11:13
[2024-03-21 13:00] VITALS: BP 118/65; PULSE 78; RESP 16; TEMP 97.6; O2SAT 97
[2024-03-21 13:24] VITALS: BP 118/65; PULSE 78; RESP 16; TEMP 97.6; O2SAT 97
== END 2024-03-21 14:05 | disposition home or self-care (01) | DRG 443 ==
LOC: SUR 06:23 → OVERFLOW 09:45 → EAST 12:25
PROVIDERS: ADMIT Urology; ATTEND Internal Medicine Geriatric Medicine
PROC: 0T9B30Z Drainage of Bladder with Drainage Device, Percutaneous Approach (ICD-10-PCS; 2024-03-19)
PROC: 0TC08ZZ Extirpation of Matter from Right Kidney, Via Natural or Artificial Opening Endoscopic (ICD-10-PCS; principal; 2024-03-19 07:40)
DX: N20.0 Calculus of kidney (principal); Z68.42 Body mass index [BMI] 45.0-49.9, adult; E66.9 Obesity, unspecified; E11.9 Type 2 diabetes mellitus without complications; I10 Essential (primary) hypertension; F32.A Depression, unspecified; Z79.84 Long term (current) use of oral hypoglycemic drugs; Z79.899 Other long term (current) drug therapy
CPT/HCPCS: 36415; 74018; 74176; 76000; 80048; 80053; 80061; 81001; 82962; 83036; 83735; 85014; 85018; 85025; 87086; 87088; G0378; J0131; J1100; J1815; J1885; J2003; J2405; J2704